=== PATIENT | female | born 1965 | race Caucasian/White ===

== ENCOUNTER 2018-05-27 08:27 | Inpatient (IN) | payer OTHER ==
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
[2018-05-27 09:33] VITALS: BMI 26.6
[2018-05-27] MEDS ORDERED: NICOTINE POLACRILEX 2 MG GUM BUC PRN (09:42)
[2018-05-27] MEDS ORDERED: METHOCARBAMOL 500 MG TABLET PO PRN (09:42)
[2018-05-27] MEDS ORDERED: ACETAMINOPHEN 325 MG TABLET (FP) PO PRN ×2 (09:42)
[2018-05-27] MEDS ORDERED: MAGNESIUM HYDROX 2400MG/30ML ORAL SUSPENSION 30 ML CUP PO PRN (09:42)
[2018-05-27] MEDS ORDERED: BISMUTH SUBSALICYLATE 262 MG/15 ML BTL PO PRN (09:42)
[2018-05-27] MEDS ORDERED: MELATONIN 5 MG TABLETS PO PRN (09:42)
[2018-05-27] MEDS ORDERED: cloNIDine HCL 0.1 MG TABLET PO PRN (09:42)
[2018-05-27] MEDS ORDERED: IBUPROFEN 400 MG TABLET (FP) PO PRN (09:42)
[2018-05-27] MEDS ORDERED: MAGNESIUM CITRATE 300 ML BOTTLE PO PRN (09:42)
[2018-05-27] MEDS ORDERED: MENTHOL/PHENOL 1 EACH UD MM PRN (09:42)
[2018-05-27] MEDS ORDERED: hydrOXYzine PAMOATE 25 MG CAPSULE (FP) PO PRN (09:42)
[2018-05-27] MEDS ORDERED: MAG HYDROX/AL HYDROX/SIMETH 30 ML UNIT-DOSE CUP PO PRN (09:42)
[2018-05-27] MEDS ORDERED: METHADONE HCL 10 MG TABLET (FOR DETOX USE ONLY) PO ONE ×2 (10:30→23:00)
[2018-05-27] MEDS: PRENATAL VITAMINS W/ FOLIC ACID TABLET (FP) PO SCH (11:09)
[2018-05-27] MEDS: GABAPENTIN 300 MG CAPSULE (FP) PO SCH ×2 (11:09→22:28)
[2018-05-27 14:34] LABS: EPI CELLS 3.4 /HPF (0-5/HPF); PH,URINE 5.5 (5.0-8.0); URINE APPEARANCE CLEAR; URINE BACTERIA 53.5 /hpf (NEGATIVE); URINE BILIRUBIN NEGATIVE (NEGATIVE); URINE CASTS 2 /lpf (0-8); URINE COLOR YELLOW; URINE GLUCOSE (UA) NEGATIVE (NEGATIVE); URINE KETONE NEGATIVE (NEGATIVE); URINE LEUK ESTERASE TRACE (NEGATIVE); URINE NITRITE NEGATIVE (NEGATIVE); URINE PROTEIN NEGATIVE (NEGATIVE); URINE RBC 4 /hpf (0-4); URINE UROBILINOGEN 0.2 mg/dL (0.2-1.0); URINE WBC 3 /hpf (0-5)
[2018-05-27 14:38] LABS: HEMOGLOBIN 11.4 GM/dL (10.7-15.3); MCH 28.8 pg (25.7-33.7); MCHC 33.5 g/dl (32.0-36.0); MEAN CELL VOLUME 85.7 fl (80-96); MEAN PLT VOLUME 9.1 fl (7.5-11.1); PLATELET COUNT 208 K/MM3 (134-434); RBC 3.96 M/mm3 (3.60-5.2); RDW 12.8 % (11.6-15.6); WHITE BLOOD COUNT 3.3 K/mm3 (4.0-10.0)
[2018-05-27] MEDS: diazePAM 5 MG TABLET PO SCH ×2 (14:54→22:29)
[2018-05-27 14:59] LABS: ALBUMIN 3.5 g/dl (3.4-5.0); ALK PHOS 81 U/L (45-117); ANION GAP 5 MMOL/L (8-16); BILIRUBIN,TOTAL 0.6 mg/dL (0.2-1); BLOOD UREA NITROGEN 13 mg/dL (7-18); CHLORIDE 103 mmol/L (98-107); CO2 30 mmol/L (21-32); CREATININE 0.6 mg/dL (0.55-1.3); GLUCOSE,RANDOM 108 mg/dL (74-106); POTASSIUM 4.2 mmol/L (3.5-5.1); SGOT/AST 24 U/L (15-37); SGPT/ALT 27 U/L (13-61); SODIUM 137 mmol/L (136-145); TOT PROT 6.6 g/dl (6.4-8.2)
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
[2018-05-27] MEDS: MIRTAZAPINE 15 MG TABLET (FP) PO SCH (22:39)
[2018-05-27] MEDS: THIAMINE HCL 100 MG TABLET (FP) PO SCH (22:40)
[2018-05-28] MEDS: diazePAM 5 MG TABLET PO SCH ×3 (05:25→22:14)
[2018-05-28] MEDS ORDERED: METHADONE HCL 10 MG TABLET (FOR DETOX USE ONLY) PO ONE (10:00)
[2018-05-28] MEDS: PRENATAL VITAMINS W/ FOLIC ACID TABLET (FP) PO SCH (10:02)
[2018-05-28] MEDS: GABAPENTIN 300 MG CAPSULE (FP) PO SCH ×2 (10:02→22:14)
--- NOTE | 2018-05-28 10:54 | EKG ---
Test Reason : Blood Pressure : / mmHG Vent. Rate : 052 BPM Atrial Rate : 052 BPM P-R Int : 156 ms QRS Dur : 086 ms QT Int : 426 ms P-R-T Axes : 022 -06 009 degrees QTc Int : 396 ms SINUS BRADYCARDIA OTHERWISE NORMAL ECG NO PREVIOUS ECGS AVAILABLE Confirmed by MD Nydia, Aleksey ([id number]) on 05/28/2018 10:54:05 AM Referred By: Confirmed By:Aleksey Stafford MD
[2018-05-28] MEDS ORDERED: PNEUMOCOCCAL 23 VACCINE 0.5 ML VIAL IM ONE (12:00)
[2018-05-28] MEDS ORDERED: PNEUMOC 13-VAL CONJ-DIP CRM/PF 0.5 ML DISP.SYRIN IM ONE (12:00)
--- NOTE | 2018-05-28 14:17 | PN ---
[facility] CIWA - CIWA Score Nausea/Vomitin-Mild Nausea/No Vomiting Muscle Tremors: 3 Anxiety: 2 Agitation: 2 Paroxysmal Sweats: 1-Minimal Palms Moist Orientation: 3-Disoriented Date>2 days Tacttile Disturbances: 0-None Auditory Disturbances: 0-None Visual Disturbances: 0-None Headache: 0-None Present CIWA-Ar Total Score: 12 [facility] COWS - Scale Resting Pulse: 0= [place] 80 or Below Sweatin= Chills/Flushing Restless Observation: 0= Sits Still Pupil Size: 0= Normal to Room Light Bone or Joint Aches: 1= Mild Discomfort Runny Nose/ Eye Tearin= Nasal Congestion GI Upset > 30mins: 2= Nausea/Diarrhea Tremor Observation of Outstretched Hands: 1= Tremor [place], Not Seen Yawning Observation: 2= >3x During Session Anxiety or Irritability: 1=Feels Anxious/Irritable Goose Flesh Skin: 3=Piloerection COWS Score: 12 [facility] Progress Note (SOAP) Subjective: feeling tired, resting on bed, trouble sleep through the night Objective: 05/28/18 14:17 Vital Signs Temperature 97.7 F 05/28/18 13:18 Pulse Rate 65 05/28/18 13:18 Respiratory Rate 18 05/28/18 13:18 Blood Pressure 127/69 05/28/18 13:18 O2 Sat by Pulse Oximetry (%) Laboratory Last Values WBC 3.3 K/mm3 (4.0-10.0) L 05/27/18 09:45 RBC 3.96 M/mm3 (3.60-5.2) 05/27/18 09:45 Hgb 11.4 GM/dL (10.7-15.3) 05/27/18 09:45 Hct 34.0 % (32.4-45.2) 05/27/18 09:45 MCV 85.7 fl (80-96) 05/27/18 09:45 MCH 28.8 pg (25.7-33.7) 05/27/18 09:45 MCHC 33.5 g/dl (32.0-36.0) 05/27/18 09:45 RDW 12.8 % (11.6-15.6) 05/27/18 09:45 Plt Count 208 K/MM3 (134-434) 05/27/18 09:45 MPV 9.1 fl (7.5-11.1) 05/27/18 09:45 Sodium 137 mmol/L (136-145) 05/27/18 09:45 Potassium 4.2 mmol/L (3.5-5.1) 05/27/18 09:45 Chloride 103 mmol/L (98-107) 05/27/18 09:45 Carbon Dioxide 30 mmol/L (21-32) 05/27/18 09:45 Anion Gap 5 MMOL/L (8-16) L 05/27/18 09:45 BUN 13 mg/dL (7-18) 05/27/18 09:45 Creatinine 0.6 mg/dL (0.55-1.3) 05/27/18 09:45 Creat Clearance w eGFR 103.79 (>60) 05/27/18 09:45 Random Glucose 108 mg/dL (74-106) H 05/27/18 09:45 Calcium 9.0 mg/dL (8.5-10.1) 05/27/18 09:45 Total Bilirubin 0.6 mg/dL (0.2-1) 05/27/18 09:45 AST 24 U/L (15-37) 05/27/18 09:45 ALT 27 U/L (13-61) 05/27/18 09:45 Alkaline Phosphatase 81 U/L (45-117) 05/27/18 09:45 Total Protein 6.6 g/dl (6.4-8.2) 05/27/18 09:45 Albumin 3.5 g/dl (3.4-5.0) 05/27/18 09:45 Urine Color Yellow 05/27/18 10:30 Urine Appearance Clear 05/27/18 10:30 Urine pH 5.5 (5.0-8.0) 05/27/18 10:30 Ur Specific [place] 1.012 (1.010-1.035) 05/27/18 10:30 Urine Protein Negative (NEGATIVE) 05/27/18 10:30 Urine Glucose (UA) Negative (NEGATIVE) 05/27/18 10:30 Urine Ketones Negative (NEGATIVE) 05/27/18 10:30 Urine Blood 1+ (NEGATIVE) H 05/27/18 10:30 Urine Nitrite Negative (NEGATIVE) 05/27/18 10:30 Urine Bilirubin Negative (NEGATIVE) 05/27/18 10:30 Urine Urobilinogen 0.2 mg/dL (0.2-1.0) 05/27/18 10:30 Ur Leukocyte Esterase Trace (NEGATIVE) 05/27/18 10:30 Urine WBC (Auto) 3 /hpf (0-5) 05/27/18 10:30 Urine RBC (Auto) 4 /hpf (0-4) 05/27/18 10:30 Urine Casts (Auto) 2 /lpf (0-8) 05/27/18 10:30 U Epithel Cells (Auto) 3.4 /HPF (0-5/HPF) 05/27/18 10:30 Urine Bacteria (Auto) 53.5 /hpf (NEGATIVE) 05/27/18 10:30 RPR Titer Nonreactive (NONREACTIVE) 05/27/18 09:45 lab noted Assessment: 05/28/18 14:17 withdrawal sx Plan: continue detox
[2018-05-28] MEDS: THIAMINE HCL 100 MG TABLET (FP) PO SCH (22:14)
[2018-05-28] MEDS: MIRTAZAPINE 15 MG TABLET (FP) PO SCH (22:14)
[2018-05-29] MEDS ORDERED: diazePAM 5 MG TABLET PO ONE (06:00)
--- NOTE | 2018-05-29 09:29 | PN ---
S CIWA - CIWA Score Nausea/Vomitin-No Nausea/No Vomiting Muscle Tremors: 2 Anxiety: 3 Agitation: 2 Paroxysmal Sweats: 1-Minimal Palms Moist Orientation: 1-Uncertain about Date Tacttile Disturbances: 0-None Auditory Disturbances: 0-None Visual Disturbances: 0-None Headache: 1-Very Mild CIWA-Ar Total Score: 10 [facility] COWS - Scale Resting Pulse: 0= [place] 80 or Below Sweatin= Chills/Flushing Restless Observation: 0= Sits Still Pupil Size: 0= Normal to Room Light Bone or Joint Aches: 1= Mild Discomfort Runny Nose/ Eye Tearin= Nasal Congestion GI Upset > 30mins: 1= Stomach Cramp Tremor Observation of Outstretched Hands: 2= Slight Tremor Visible Yawning Observation: 2= >3x During Session Anxiety or Irritability: 2=Irritable/Anxious Goose Flesh Skin: 0=Smooth Skin COWS Score: 10 [facility] Progress Note (SOAP) Subjective: feeling ok today limited social activities with peers in day room patient is taking klonazapin 0.5 mg po bid last filled 05/21/18 patient is taking oxy bid last filled 04/15/18 Objective: 05/29/18 10:07 Vital Signs Temperature 97.9 F 05/29/18 09:18 Pulse Rate 59 L 05/29/18 09:18 Respiratory Rate 18 05/29/18 09:18 Blood Pressure 140/73 05/29/18 09:18 O2 Sat by Pulse Oximetry (%) Laboratory Last Values WBC 3.3 K/mm3 (4.0-10.0) L 05/27/18 09:45 RBC 3.96 M/mm3 (3.60-5.2) 05/27/18 09:45 Hgb 11.4 GM/dL (10.7-15.3) 05/27/18 09:45 Hct 34.0 % (32.4-45.2) 05/27/18 09:45 MCV 85.7 fl (80-96) 05/27/18 09:45 MCH 28.8 pg (25.7-33.7) 05/27/18 09:45 MCHC 33.5 g/dl (32.0-36.0) 05/27/18 09:45 RDW 12.8 % (11.6-15.6) 05/27/18 09:45 Plt Count 208 K/MM3 (134-434) 05/27/18 09:45 MPV 9.1 fl (7.5-11.1) 05/27/18 09:45 Sodium 137 mmol/L (136-145) 05/27/18 09:45 Potassium 4.2 mmol/L (3.5-5.1) 05/27/18 09:45 Chloride 103 mmol/L (98-107) 05/27/18 09:45 Carbon Dioxide 30 mmol/L (21-32) 05/27/18 09:45 Anion Gap 5 MMOL/L (8-16) L 05/27/18 09:45 BUN 13 mg/dL (7-18) 05/27/18 09:45 Creatinine 0.6 mg/dL (0.55-1.3) 05/27/18 09:45 Creat Clearance w eGFR 103.79 (>60) 05/27/18 09:45 Random Glucose 108 mg/dL (74-106) H 05/27/18 09:45 Calcium 9.0 mg/dL (8.5-10.1) 05/27/18 09:45 Total Bilirubin 0.6 mg/dL (0.2-1) 05/27/18 09:45 AST 24 U/L (15-37) 05/27/18 09:45 ALT 27 U/L (13-61) 05/27/18 09:45 Alkaline Phosphatase 81 U/L (45-117) 05/27/18 09:45 Total Protein 6.6 g/dl (6.4-8.2) 05/27/18 09:45 Albumin 3.5 g/dl (3.4-5.0) 05/27/18 09:45 Urine Color Yellow 05/27/18 10:30 Urine Appearance Clear 05/27/18 10:30 Urine pH 5.5 (5.0-8.0) 05/27/18 10:30 Ur Specific [place] 1.012 (1.010-1.035) 05/27/18 10:30 Urine Protein Negative (NEGATIVE) 05/27/18 10:30 Urine Glucose (UA) Negative (NEGATIVE) 05/27/18 10:30 Urine Ketones Negative (NEGATIVE) 05/27/18 10:30 Urine Blood 1+ (NEGATIVE) H 05/27/18 10:30 Urine Nitrite Negative (NEGATIVE) 05/27/18 10:30 Urine Bilirubin Negative (NEGATIVE) 05/27/18 10:30 Urine Urobilinogen 0.2 mg/dL (0.2-1.0) 05/27/18 10:30 Ur Leukocyte Esterase Trace (NEGATIVE) 05/27/18 10:30 Urine WBC (Auto) 3 /hpf (0-5) 05/27/18 10:30 Urine RBC (Auto) 4 /hpf (0-4) 05/27/18 10:30 Urine Casts (Auto) 2 /lpf (0-8) 05/27/18 10:30 U Epithel Cells (Auto) 3.4 /HPF (0-5/HPF) 05/27/18 10:30 Urine Bacteria (Auto) 53.5 /hpf (NEGATIVE) 05/27/18 10:30 RPR Titer Nonreactive (NONREACTIVE) 05/27/18 09:45 lab noted Assessment: 05/29/18 10:08 alcohol and opiate withdrawal sx Plan: continue detox patient considers return to klonopin and oxy provider upon discharge
[2018-05-29] MEDS ORDERED: METHADONE HCL 10 MG TABLET (FOR DETOX USE ONLY) PO ONE (10:00)
[2018-05-29] MEDS: GABAPENTIN 300 MG CAPSULE (FP) PO SCH ×2 (10:12→22:40)
[2018-05-29] MEDS: PRENATAL VITAMINS W/ FOLIC ACID TABLET (FP) PO SCH (10:12)
[2018-05-29] MEDS: diazePAM 5 MG TABLET PO PRN ×2 (10:13→22:42)
[2018-05-29] MEDS: MIRTAZAPINE 15 MG TABLET (FP) PO SCH (22:40)
[2018-05-29] MEDS: THIAMINE HCL 100 MG TABLET (FP) PO SCH (22:40)
[2018-05-30] MEDS ORDERED: METHADONE HCL 10 MG TABLET (FOR DETOX USE ONLY) PO ONE (10:00)
[2018-05-30] MEDS: PRENATAL VITAMINS W/ FOLIC ACID TABLET (FP) PO SCH (10:38)
[2018-05-30] MEDS: GABAPENTIN 300 MG CAPSULE (FP) PO SCH (10:38)
[2018-05-30 10:57] LABS: HEMATOCRIT 37.3 % (32.4-45.2); HEMOGLOBIN 12.6 GM/dL (10.7-15.3); MCHC 33.7 g/dl (32.0-36.0); MEAN PLT VOLUME 9.3 fl (7.5-11.1); PLATELET COUNT 202 K/MM3 (134-434); RBC 4.34 M/mm3 (3.60-5.2); RDW 13.1 % (11.6-15.6); WHITE BLOOD COUNT 5.7 K/mm3 (4.0-10.0)
--- NOTE | 2018-05-30 12:14 | PN ---
S CIWA - CIWA Score Nausea/Vomitin-Mild Nausea/No Vomiting Muscle Tremors: 1-None Visible, but [place] Anxiety: 2 Agitation: 1-Slight > Activity Paroxysmal Sweats: No Perspiration Orientation: 0-Oriented Tacttile Disturbances: 0-None Auditory Disturbances: 0-None Visual Disturbances: 0-None Headache: 1-Very Mild CIWA-Ar Total Score: 6 [facility] COWS - Scale Resting Pulse: 1= [place] 81-100 Sweatin= Chills/Flushing Restless Observation: 0= Sits Still Pupil Size: 0= Normal to Room Light Bone or Joint Aches: 1= Mild Discomfort Runny Nose/ Eye Tearin= None GI Upset > 30mins: 1= Stomach Cramp Tremor Observation of Outstretched Hands: 1= Tremor [place], Not Seen Yawning Observation: 0= None Anxiety or Irritability: 1=Feels Anxious/Irritable Goose Flesh Skin: 0=Smooth Skin COWS Score: 6 S Progress Note (SOAP) Subjective: feeling better today social with peers in day room Objective: 05/30/18 12:11 Vital Signs Temperature 99.1 F 05/30/18 09:48 Pulse Rate 82 05/30/18 09:48 Respiratory Rate 18 05/30/18 09:48 Blood Pressure 146/84 05/30/18 09:48 O2 Sat by Pulse Oximetry (%) Laboratory Last Values WBC 5.7 K/mm3 (4.0-10.0) 05/30/18 07:00 RBC 4.34 M/mm3 (3.60-5.2) 05/30/18 07:00 Hgb 12.6 GM/dL (10.7-15.3) 05/30/18 07:00 Hct 37.3 % (32.4-45.2) 05/30/18 07:00 MCV 86.0 fl (80-96) 05/30/18 07:00 MCH 29.0 pg (25.7-33.7) 05/30/18 07:00 MCHC 33.7 g/dl (32.0-36.0) 05/30/18 07:00 RDW 13.1 % (11.6-15.6) 05/30/18 07:00 Plt Count 202 K/MM3 (134-434) 05/30/18 07:00 MPV 9.3 fl (7.5-11.1) 05/30/18 07:00 Sodium 137 mmol/L (136-145) 05/27/18 09:45 Potassium 4.2 mmol/L (3.5-5.1) 05/27/18 09:45 Chloride 103 mmol/L (98-107) 05/27/18 09:45 Carbon Dioxide 30 mmol/L (21-32) 05/27/18 09:45 Anion Gap 5 MMOL/L (8-16) L 05/27/18 09:45 BUN 13 mg/dL (7-18) 05/27/18 09:45 Creatinine 0.6 mg/dL (0.55-1.3) 05/27/18 09:45 Creat Clearance w eGFR 103.79 (>60) 05/27/18 09:45 Random Glucose 108 mg/dL (74-106) H 05/27/18 09:45 Calcium 9.0 mg/dL (8.5-10.1) 05/27/18 09:45 Total Bilirubin 0.6 mg/dL (0.2-1) 05/27/18 09:45 AST 24 U/L (15-37) 05/27/18 09:45 ALT 27 U/L (13-61) 05/27/18 09:45 Alkaline Phosphatase 81 U/L (45-117) 05/27/18 09:45 Total Protein 6.6 g/dl (6.4-8.2) 05/27/18 09:45 Albumin 3.5 g/dl (3.4-5.0) 05/27/18 09:45 Urine Color Yellow 05/27/18 10:30 Urine Appearance Clear 05/27/18 10:30 Urine pH 5.5 (5.0-8.0) 05/27/18 10:30 Ur Specific [place] 1.012 (1.010-1.035) 05/27/18 10:30 Urine Protein Negative (NEGATIVE) 05/27/18 10:30 Urine Glucose (UA) Negative (NEGATIVE) 05/27/18 10:30 Urine Ketones Negative (NEGATIVE) 05/27/18 10:30 Urine Blood 1+ (NEGATIVE) H 05/27/18 10:30 Urine Nitrite Negative (NEGATIVE) 05/27/18 10:30 Urine Bilirubin Negative (NEGATIVE) 05/27/18 10:30 Urine Urobilinogen 0.2 mg/dL (0.2-1.0) 05/27/18 10:30 Ur Leukocyte Esterase Trace (NEGATIVE) 05/27/18 10:30 Urine WBC (Auto) 3 /hpf (0-5) 05/27/18 10:30 Urine RBC (Auto) 4 /hpf (0-4) 05/27/18 10:30 Urine Casts (Auto) 2 /lpf (0-8) 05/27/18 10:30 U Epithel Cells (Auto) 3.4 /HPF (0-5/HPF) 05/27/18 10:30 Urine Bacteria (Auto) 53.5 /hpf (NEGATIVE) 05/27/18 10:30 RPR Titer Nonreactive (NONREACTIVE) 05/27/18 09:45 lab noted Assessment: 05/30/18 12:14 mild withdrawal sx Plan: continue detox
[2018-05-30 18:20] VITALS: BP 113/63; PULSE 83; TEMP 100
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
--- NOTE | 2018-05-30 18:29 | DS ---
[facility] Detox Discharge Summary Admission Date: 05/27/18 Discharge Date: 05/30/18 - History Present History: Alcohol Dependence Additional Comments: Patient left AMA and walked off the unit. - Physical Exam Results Vital Signs: Vital Signs Temperature 100.0 F H 05/30/18 17:00 Pulse Rate 83 05/30/18 17:00 Respiratory Rate 16 05/30/18 17:00 Blood Pressure 113/63 05/30/18 17:00 O2 Sat by Pulse Oximetry (%) - Medication Discharge Medications: Ambulatory Orders Oxycodone HCl/Acetaminophen [Percocet 5-325 mg Tablet] 1 tab PO Q4H #20 tablet MDD 12 12/19/15 Gabapentin [Neurontin -] 300 mg PO BID 05/27/18 Melatonin/Pyridoxine HCl (B6) [Melatonin 5 mg Tablet] 1 each PO HS 05/27/18 Meloxicam 15 mg PO DAILY 05/27/18 - AMA Did Patient Leave Against Medical Advice: Yes
[2018-05-31] MEDS ORDERED: METHADONE HCL 5 MG TABLET (FOR DETOX USE ONLY) PO ONE (06:00)
== END 2018-05-30 17:39 | disposition left against medical advice (07) | DRG 770 ==
LOC: YASAS 08:27 → Y3N 10:00
PROVIDERS: ADMIT Surgery; ATTEND Surgery
PROC: HZ2ZZZZ Detoxification Services for Substance Abuse Treatment (ICD-10-PCS; principal; 2018-05-27)
DX: F10.230 Alcohol dependence with withdrawal, uncomplicated (principal); F11.23 Opioid dependence with withdrawal; F17.210 Nicotine dependence, cigarettes, uncomplicated; F19.24 Other psychoactive substance dependence with psychoactive substance-induced mood disorder; F31.9 Bipolar disorder, unspecified; F43.10 Post-traumatic stress disorder, unspecified; G47.00 Insomnia, unspecified; M54.5 Low back pain; E86.0 Dehydration; R63.4 Abnormal weight loss; Z68.26 Body mass index [BMI] 26.0-26.9, adult; R01.1 Cardiac murmur, unspecified
CPT/HCPCS: 36415; 80053; 81003; 85027; 86593; 90732; 93005; 93010; G0009

== ENCOUNTER 2018-11-11 09:41 | Inpatient (IN) | payer OTHER ==
[2018-11-11 10:01] VITALS: BMI 21.8
--- NOTE | 2018-11-11 10:31 | HP ---
COWS - Scale Resting Pulse: 0= [place] 80 or Below Sweatin=Flushed/Facial Moisture Restless Observation: 3= Extraneous Movement Pupil Size: 1= Pupils >than Normal Bone or Joint Aches: 2= Severe Diffuse Aches Runny Nose/ Eye Tearin= Runny Nose/Eyes GI Upset > 30mins: 1= Stomach Cramp Tremor Observation: 2= Slight Tremor Visible Yawning Observation: 1= 1-2x During Session Anxiety or Irritability: 2=Irritable/Anxious Goose Flesh Skin: 3=Piloerection COWS Score: 19 CIWA Score Nausea/Vomitin-Mild Nausea/No Vomiting Muscle Tremors: 3 Anxiety: 4-Mod. Anxious/Guarded Agitation: 3 Paroxysmal Sweats: 3 Orientation: 0-Oriented Tacttile Disturbances: 1-Very Mild Itch/Numbness Auditory Disturbances: 0-None Visual Disturbances: 0-None Headache: 3-Moderate CIWA-Ar Total Score: 18 - Admission Criteria OASAS Guidelines: Admission for Medically Managed Detox: Requires at least one of the followin. CIWA greater than 12 2. Seizures within the past 24 hours 3. Delirium tremens within the past 24 hours 4. Hallucinations within the past 24 hours 5. Acute intervention needed for co occurring medical disorder 6. Acute intervention needed for co occurring psychiatric disorder 7. Severe withdrawal that cannot be handled at a lower level of care (continued vomiting, continued diarrhea, abnormal vital signs) requiring intravenous medication and/or fluids 8. Admitting History and Physical - Primary Care Physician PCP: Fabien Tobin ([facility]) - Admission Chief Complaint: " I want to detox from heroin and alcohol." History of Present Illness: Patient is 53 year old female with alcohol dependence with withdrawals and heroin dependence with withdrawals. She is using 1 pint of vodka daily, last drank last night 5 PM. She is using heroin 6-7 bags of heroin daily, last used yesterday. She is also using cocaine sporadically, last used 2 days ago. She is prescribed xanax by her psychiatrist, Dr. Lyle in [place]. History Source: Patient Limitations to Obtaining History: No Limitations - Past Medical History Cardiovascular: Yes: Murmur, Other (had rheumatic fever with cardiac involvement as a child.) ...LMP Comment: post menopausal 13 years ago ...: No ...: 1 ...Para: 1 Heme/Onc: Yes: Anemia Psych: Yes: Bipolar Rheumatology: Yes: Rheumatoid Arthritis - Past Surgical History Additional Past Surgical History: cyst on right thigh as a child. 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 She is using 7 bags of heroin daily, last used this morning. She is using cocaine sporadically, last used 2-3 days ago. She is using alcohol 1 pint of vodka daily, last used yesterday evening. She smokeds 1/2 ppd daily, last smoked today. PMH: Heart murmur and rheumatic fever as a child. Psurg: Left thigh cyst removal, Left elbow in 1985 Exam Limitations: No Limitations - Ebola screening Have you traveled outside of the country in the last 21 days: No Have you had contact with anyone from an Ebola affected area: No Have you been sick,other than usual withdrawal symptoms: No Do you have a fever: No - Review of Systems Constitutional: No Symptoms Reported EENT: reports: No Symptoms Reported Respiratory: reports: No Symptoms reported Cardiac: reports: No Symptoms Reported GI: reports: Nausea, Abdominal cramping : reports: No Symptoms Reported Musculoskeletal: reports: Muscle Pain, Muscle Weakness Integumentary: reports: No Symptoms Reported Neuro: reports: Headache Endocrine: reports: No Symptoms Reported Hematology: reports: No Symptoms Reported Psychiatric: reports: Agitated, Anxious Other Systems: Reviewed and Negative Patient History - Patient Medical History Hx Anemia: No Hx Asthma: No Hx Chronic Obstructive Pulmonary Disease (COPD): No Hx Cancer: No Hx Cardiac Disorders: Yes (HEART MURMUR) Hx Congestive Heart Failure: No Hx Hypertension: No Hx Hypercholesterolemia: No Hx Pacemaker: No HX Cerebrovascular Accident: No Hx Seizures: No Hx Dementia: No Hx Diabetes: No Hx Gastrointestinal Disorders: No Hx Liver Disease: No Hx Genitourinary Disorders: No Hx Sexually Transmitted Disorders: No Hx Renal Disease (ESRD): No Hx Thyroid Disease: No Hx Human Immunodeficiency Virus (HIV): No (last negative 2016) Hx Hepatitis C: No Hx Depression: Yes Hx Suicide Attempt: No Hx Bipolar Disorder: Yes (on med) Hx Schizophrenia: No - Patient Surgical History Past Surgical History: Yes Hx Neurologic Surgery: Yes (neuropathy L arm) Hx Cataract Extraction: No Hx Cardiac Surgery: No Hx Lung Surgery: No Hx Breast Surgery: No Hx Breast Biopsy: No Hx Abdominal Surgery: No Hx Appendectomy: No Hx Cholecystectomy: No Hx Genitourinary Surgery: No Hx Section: No Hx Orthopedic Surgery: Yes (left elbow surgery in [facility]) Anesthesia Reaction: No - PPD History Previous Implant?: Yes Documented Results: Negative w/proof Implanted On Prior [facility] Admission?: Yes Date: 05/29/18 PPD to be Administered?: No - Reproductive History Patient is a Female of Child Bearing Age (11 -55 yrs old): Yes LMP comment: stopped menstruation 13 years ago Patient : No - Smoking Cessation Smoking history: Current every day smoker Have you smoked in the past 12 months: Yes Aproximately how many cigarettes per day: 20 Hx Chewing Tobacco Use: No Initiated information on smoking cessation: Yes 'Breaking Loose' booklet given: 11/11/18 - Substance & Tx. History Hx Alcohol Use: Yes (1 pint daily of vodka) Hx Substance Use: Yes Substance Use Type: Alcohol, Cocaine, Heroin Hx Substance Use Treatment: Yes (multiple detoxes) - Substances abused Heroin Substance route: Inhalation Frequency: Daily Amount used: 7-8 bags Age of first use: 23 Date of last use: 11/11/18 Alcohol Substance route: Oral Frequency: Daily Amount used: 1 .5 glass wine, 1 pt. vodka Age of first use: 17 Date of last use: 11/10/18 Admission Physical Exam BHS - Vital Signs Vital Signs: Vital Signs - 24 hr 11/11/18 09:44 Temperature 97.7 F Pulse Rate 64 Respiratory 18 Rate Blood Pressure 122/69 - Physical General Appearance: Yes: Disheveled, Moderate Distress HEENTM: Yes: EOMI, Hearing grossly Normal, Normocephalic, Normal Voice, JULIO CESAR, Tm 's normal Respiratory: Yes: Chest Non-Tender, Lungs Clear, Normal Breath Sounds, No Respiratory Distress, No Accessory Muscle Use Neck: Yes: No masses,lesions,Nodules, Supple, Trachea in good position Breast: Yes: Within Normal Limits, Axillae without masses, Breasts Symetrical Cardiology: Yes: Regular Rhythm, Regular Rate, S1, S2, Murmur, Systolic Murmur ( mid-systolic murmur.) Abdominal: Yes: Normal Bowel Sounds, Non Tender, Flat, Soft Genitourinary: Yes: Within Normal Limits Back: Yes: Normal Inspection Musculoskeletal: Yes: full range of Motion, Gait Steady Extremities: Yes: Normal Capillary Refill, Normal Inspection, Normal Range of Motion, Non-Tender Neurological: Yes: cutter and presser II-XII NML intact, Fully Oriented, Alert, Motor Strength 5/5, Normal Mood/Affect Integumentary: Yes: Normal Color, Warm Lymphatic: Yes: Within Normal Limits - Diagnostic (1) Alcohol dependence with uncomplicated withdrawal Current Visit: Yes Status: Acute (2) Bipolar disorder Current Visit: Yes Status: Acute (3) Opioid dependence with withdrawal Current Visit: Yes Status: Acute (4) Nicotine dependence Current Visit: Yes Status: Chronic (5) Substance induced mood disorder Current Visit: Yes Status: Chronic Cleared for Admission [facility] - Detox or Rehab [facility] Level of Care: Medically Managed Detox Regimen/Protocol: Methadone/Librium Screened but not Admitted - Documentation of Visit Screened but not Admitted: No Left Prior to Completion of Assessment: No Insurance Authorization Denied: No Patient Does Not Meet Criteria for Admission: No Alternative Treatment/Jail Info Provided: No Breathalyzer - Breathalyzer Breathalyzer: 0 Vital Signs - Vital Signs Vital signs refused: No Temperature: 97.7 F Temperature source: Oral Pulse Rate: 64 Respiratory Rate: 18 Blood Pressure: 122/69 BP Location: Left Arm Blood Pressure position: Sitting - Height Height: 5 ft 5 in - Weight Weight: 131 lb Weight measurement method: Standing scale - BMI Body Mass Index (BMI): 21.8 - Bowel Function Bowel Movement: Yes POC Urine test - Test device test lot number: [id number] Expiration date: 10/13/19 - Control test control: Yes - Result Urine Test Results: Negative - NO line present Urine Drug Screen - Test Device Lot number: [id number] Expiration date: 01/12/20 - Control Is test valid?: Yes - Results Drug screen NEGATIVE: No Urine drug screen results: MOP-Opiates Inpatient Rehab Admission - Rehab Decision to Admit Inpatient rehab admission?: No
[2018-11-11] MEDS ORDERED: hydrOXYzine PAMOATE 25 MG CAPSULE (FP) PO PRN (10:55)
[2018-11-11] MEDS ORDERED: MAGNESIUM CITRATE 300 ML BOTTLE PO PRN (10:55)
[2018-11-11] MEDS ORDERED: MAGNESIUM HYDROX 2400MG/30ML ORAL SUSPENSION 30 ML CUP PO PRN (10:55)
[2018-11-11] MEDS ORDERED: cloNIDine HCL 0.1 MG TABLET PO PRN (10:55)
[2018-11-11] MEDS ORDERED: MELATONIN 5 MG TABLETS PO PRN (10:55)
[2018-11-11] MEDS ORDERED: METHADONE HCL 10 MG TABLET (FOR DETOX USE ONLY) PO ONE (10:55)
[2018-11-11] MEDS ORDERED: MAG HYDROX/AL HYDROX/SIMETH 30 ML UNIT-DOSE CUP PO PRN (10:55)
[2018-11-11] MEDS ORDERED: MENTHOL/PHENOL 1 EACH UD MM PRN (10:55)
[2018-11-11] MEDS ORDERED: BISMUTH SUBSALICYLATE 524 MG/30 ML UD PO PRN (10:55)
[2018-11-11] MEDS ORDERED: chlordiazePOXIDE HCL 25 MG CAPSULE PO PRN (10:55)
[2018-11-11] MEDS ORDERED: IBUPROFEN 400 MG TABLET (FP) PO PRN (10:55)
[2018-11-11] MEDS ORDERED: ACETAMINOPHEN 325 MG TABLET (FP) PO PRN ×2 (10:55)
[2018-11-11] MEDS ORDERED: METHOCARBAMOL 500 MG TABLET PO PRN (10:55)
[2018-11-11] MEDS ORDERED: IBUPROFEN 200 MG TABLET PO PRN ×2 (12:14→15:39)
[2018-11-11] MEDS: chlordiazePOXIDE HCL 25 MG CAPSULE PO SCH ×3 (12:46→22:34)
[2018-11-11 14:07] LABS: HEMATOCRIT 34.9 % (32.4-45.2); HEMOGLOBIN 11.5 GM/dL (10.7-15.3); MCH 28.1 pg (25.7-33.7); MCHC 32.9 g/dl (32.0-36.0); MEAN CELL VOLUME 85.3 fl (80-96); MEAN PLT VOLUME 9.3 fl (7.5-11.1); PLATELET COUNT 205 K/MM3 (134-434); RBC 4.09 M/mm3 (3.60-5.2); WHITE BLOOD COUNT 5.1 K/mm3 (4.0-10.0)
[2018-11-11 14:20] LABS: ALBUMIN 3.6 g/dl (3.4-5.0); BILIRUBIN,TOTAL 0.6 mg/dL (0.2-1); BLOOD UREA NITROGEN 15.8 mg/dL (7-18); CALCIUM 8.9 mg/dL (8.5-10.1); CREATININE 0.8 mg/dL (0.55-1.3); POTASSIUM 3.9 mmol/L (3.5-5.1); TOT PROT 6.8 g/dl (6.4-8.2)
[2018-11-11] MEDS ORDERED: THIAMINE HCL 100 MG TABLET (FP) PO SCH (22:00)
[2018-11-11] MEDS: GABAPENTIN 300 MG CAPSULE (FP) PO SCH (22:35)
[2018-11-12] MEDS: chlordiazePOXIDE HCL 25 MG CAPSULE PO SCH ×2 (06:29→10:29)
[2018-11-12] MEDS ORDERED: METHADONE HCL 10 MG TABLET (FOR DETOX USE ONLY) ONE (08:39)
[2018-11-12] MEDS ORDERED: METHADONE HCL 5 MG TABLET (FOR DETOX USE ONLY) ONE (08:39)
[2018-11-12 09:34] VITALS: BP 125/72; PULSE 69; TEMP 98.8
[2018-11-12] MEDS ORDERED: METHADONE (DETOX) 20 MG, METHADONE (DETOX) 5 MG PO ONE (10:00)
[2018-11-12] MEDS ORDERED: PRENATAL VITAMINS W/ FOLIC ACID TABLET (FP) PO SCH (10:00)
[2018-11-12] MEDS ORDERED: NICOTINE 14 MG/24 HOURS TOPICAL PATCH TD SCH (10:00)
[2018-11-12] MEDS ORDERED: PATIENT'S OWN MEDICATION (NON-FORMULARY) (Meloxicam [Meloxicam] 15 MG) PO SCH (10:00)
[2018-11-12] MEDS: GABAPENTIN 300 MG CAPSULE (FP) PO SCH (10:29)
--- NOTE | 2018-11-12 17:13 | DS ---
[facility] Detox Discharge Summary Admission Date: 11/11/18 Discharge Date: 11/12/18 - History Present History: Alcohol Dependence, Opioid Dependence Additional Comments: DESPITE EFFORTS BY TELECASTING ENGINEER AND BY NURSING STAFF TO ADDRESS PATIENT'S MEDICAL NEEDS / CONCERNS, PATIENT DOES NOT WISH TO REMAIN TO COMPLETE DETOX REGIMEN. RISKS OF LEAVING DETOX UNIT AGAINST MEDICAL ADVICE AND PRIOR TO COMPLETION OF DETOX REGIMEN EXPLAINED TO PATIENT. PATIENT ADVISED TO GO IMMEDIATELY TO NEAREST ER SHOULD ANY INTOLERABLE WITHDRAWAL / DETOX SYMPTOMS DEVELOP AT ANY TIME. PATIENT VERBALIZED UNDERSTANDING OF ALL INFORMATION / RECOMMENDATIONS PRESENTED TO HER PRIOR TO DEPARTURE FROM DETOX UNIT. PATIENT LEFT DETOX UNIT IN STABLE MEDICAL CONDITION. Pertinent Past History: Bipolar Disorder, Nicotine Dependence, History Of Cardiac Murmur, History Of rheumatic Fever (During Childhood), History Of Anemia, History Of Rheumatoid Arthritis. - Physical Exam Results Vital Signs: Vital Signs Temperature 98.8 F 11/12/18 09:33 Pulse Rate 69 11/12/18 09:33 Respiratory Rate 18 11/12/18 09:33 Blood Pressure 125/72 11/12/18 09:33 O2 Sat by Pulse Oximetry (%) Pertinent Admission Physical Exam Findings: WITHDRAWAL SYMPTOMS. Laboratory Tests 11/11/18 11/11/18 11/11/18 10:43 11:30 11:30 WBC 5.1 RBC 4.09 Hgb 11.5 Hct 34.9 MCV 85.3 MCH 28.1 MCHC 32.9 RDW 14.0 Plt Count 205 MPV 9.3 Sodium 140 Potassium 3.9 Chloride 104 Carbon Dioxide 30 Anion Gap 6 L BUN 15.8 Creatinine 0.8 Est GFR (CKD-EPI)AfAm 96.19 Est GFR (CKD-EPI)NonAf 83.00 Random Glucose 108 H Calcium 8.9 Total Bilirubin 0.6 AST 9 L ALT 17 Alkaline Phosphatase 79 Total Protein 6.8 Albumin 3.6 POC Urine HCG, Qual Negative RPR Titer 11/11/18 11:30 WBC RBC Hgb Hct MCV MCH MCHC RDW Plt Count MPV Sodium Potassium Chloride Carbon Dioxide Anion Gap BUN Creatinine Est GFR (CKD-EPI)AfAm Est GFR (CKD-EPI)NonAf Random Glucose Calcium Total Bilirubin AST ALT Alkaline Phosphatase Total Protein Albumin POC Urine HCG, Qual RPR Titer Nonreactive LABS NOTED. - Medication Discharge Medications: Ambulatory Orders Gabapentin [Neurontin -] 300 mg PO BID 05/27/18 Melatonin/Pyridoxine HCl (B6) [Melatonin 5 mg Tablet] 1 each PO HS 05/27/18 - Diagnosis (1) Substance induced mood disorder Status: Chronic (2) Opioid dependence with withdrawal Status: Acute (3) Nicotine dependence Status: Chronic Qualifiers: Nicotine product type: cigarettes Substance use status: uncomplicated Qualified Code(s): F17.210 - Nicotine dependence, cigarettes, uncomplicated (4) Bipolar disorder Status: Acute Qualifiers: Active/Remission status: remission status unspecified Qualified Code(s): F31.9 - Bipolar disorder, unspecified (5) Alcohol dependence with uncomplicated withdrawal Status: Acute - AMA Did Patient Leave Against Medical Advice: Yes (PATIENT SIS NOT WISH TOV REMAIN TO COMPLETE DETOX REGIMEN.) [facility] CIWA - CIWA Score Nausea/Vomitin-No Nausea/No Vomiting Muscle Tremors: 2 Anxiety: 4-Mod. Anxious/Guarded Agitation: 3 Paroxysmal Sweats: No Perspiration Orientation: 0-Oriented Tacttile Disturbances: 2-Mild Itch/Numbness/Burn Auditory Disturbances: 2-Mild Harshness/Frighten Visual Disturbances: 0-None Headache: 0-None Present CIWA-Ar Total Score: 13 S COWS - Scale Resting Pulse: 0= [place] 80 or Below Sweatin= No chills or Flushing Restless Observation: 1= Difficult to Sit Still Pupil Size: 0= Normal to Room Light Bone or Joint Aches: 2= Severe Diffuse Aches Runny Nose/ Eye Tearin= Nasal Congestion GI Upset > 30mins: 0= None Tremor Observation of Outstretched Hands: 0= None Yawning Observation: 1= 1-2x During Session Anxiety or Irritability: 2=Irritable/Anxious Goose Flesh Skin: 3=Piloerection COWS Score: 10
[2018-11-13] MEDS ORDERED: chlordiazePOXIDE HCL 25 MG CAPSULE PO SCH (05:00)
[2018-11-13] MEDS ORDERED: METHADONE HCL 10 MG TABLET (FOR DETOX USE ONLY) PO ONE (10:00)
[2018-11-14] MEDS ORDERED: chlordiazePOXIDE HCL 10 MG CAPSULE PO PRN
[2018-11-14] MEDS ORDERED: chlordiazePOXIDE HCL 10 MG CAPSULE PO SCH (05:00)
[2018-11-14] MEDS ORDERED: METHADONE (DETOX) 10 MG, METHADONE (DETOX) 5 MG PO ONE (10:00)
[2018-11-15] MEDS ORDERED: chlordiazePOXIDE HCL 10 MG CAPSULE PO SCH (05:00)
[2018-11-15] MEDS ORDERED: METHADONE HCL 10 MG TABLET (FOR DETOX USE ONLY) PO ONE (10:00)
[2018-11-16] MEDS ORDERED: chlordiazePOXIDE HCL 10 MG CAPSULE PO ONE (05:00)
[2018-11-16] MEDS ORDERED: METHADONE HCL 5 MG TABLET (FOR DETOX USE ONLY) PO ONE (06:00)
== END 2018-11-12 14:08 | disposition left against medical advice (07) | DRG 770 ==
LOC: YASAS 09:41 → Y3N 11:10
PROVIDERS: ADMIT Surgery; ATTEND Surgery
PROC: HZ2ZZZZ Detoxification Services for Substance Abuse Treatment (ICD-10-PCS; principal; 2018-11-11)
DX: F11.23 Opioid dependence with withdrawal (principal); F10.230 Alcohol dependence with withdrawal, uncomplicated; F17.210 Nicotine dependence, cigarettes, uncomplicated; F19.24 Other psychoactive substance dependence with psychoactive substance-induced mood disorder; F31.9 Bipolar disorder, unspecified; R01.1 Cardiac murmur, unspecified; Z86.19 Personal history of other infectious and parasitic diseases
CPT/HCPCS: 36415; 80053; 81025; 85027; 86593

== ENCOUNTER 2020-11-15 11:47 | Inpatient (IN) | payer OTHER ==
[2020-11-15 13:20] VITALS: BMI 27.6
[2020-11-15] MEDS ORDERED: guaiFENesin 200 MG/10 ML 10 ML UNIT-DOSE CUPS PO PRN (13:42)
[2020-11-15] MEDS ORDERED: MAGNESIUM HYDROX 2400MG/30ML ORAL SUSPENSION 30 ML CUP PO PRN (13:42)
[2020-11-15] MEDS ORDERED: MAGNESIUM CITRATE 300 ML BOTTLE PO PRN (13:42)
[2020-11-15] MEDS ORDERED: IBUPROFEN 400 MG TABLET (FP) PO PRN (13:42)
[2020-11-15] MEDS ORDERED: LOPERAMIDE HCL 2 MG CAPSULE PO PRN (13:42)
[2020-11-15] MEDS ORDERED: ACETAMINOPHEN 325 MG TABLET (FP) PO PRN (13:42)
[2020-11-15] MEDS ORDERED: MAG HYDROX/AL HYDROX/SIMETH 30 ML UNIT-DOSE CUP PO PRN (13:42)
[2020-11-15] MEDS ORDERED: P-EPHED 60MG/TRIPROLIDI 2.5MG TABLET PO PRN (13:42)
[2020-11-15 17:12] LABS: HEMATOCRIT 34.9 % (32.4-45.2); HEMOGLOBIN 11.7 GM/dL (10.7-15.3); MCH 28.3 pg (25.7-33.7); MCHC 33.4 g/dl (32.0-36.0); MEAN CELL VOLUME 84.6 fl (80-96); MEAN PLT VOLUME 8.5 fl (7.5-11.1); PLATELET COUNT 215 10^3/uL (134-434); RBC 4.12 M/mm3 (3.60-5.2); RDW 13.9 % (11.6-15.6)
[2020-11-15 17:19] LABS: CALCIUM 8.8 mg/dL (8.5-10.1)
[2020-11-15 17:20] LABS: ALBUMIN 3.5 g/dl (3.4-5.0); BLOOD UREA NITROGEN 11.4 mg/dL (7-18)
[2020-11-15 17:23] LABS: CREATININE 0.8 mg/dL (0.55-1.3)
[2020-11-15 17:25] LABS: BILIRUBIN,TOTAL 0.5 mg/dL (0.2-1)
[2020-11-15 17:40] LABS: SYPHILIS W/ RPR CONF NON-REACTIVE (NONREACTIVE)
[2020-11-15] MEDS ORDERED: TUBERCULIN PPD 5 TU/0.1ML VIAL ID ONE (17:42)
[2020-11-15] MEDS: PRENATAL VITAMINS W/ FOLIC ACID TABLET (FP) PO SCH (18:01)
[2020-11-15] MEDS: hydrOXYzine PAMOATE 25 MG CAPSULE (FP) PO SCH ×2 (18:01→21:44)
[2020-11-15] MEDS: THIAMINE HCL 100 MG TABLET (FP) PO SCH (21:44)
[2020-11-15] MEDS: MELATONIN 5 MG TABLETS PO SCH (21:44)
[2020-11-15] MEDS: GABAPENTIN 300 MG CAPSULE PO SCH (21:44)
[2020-11-16] MEDS: hydrOXYzine PAMOATE 25 MG CAPSULE (FP) PO SCH ×6 (06:58→21:14)
[2020-11-16] MEDS ORDERED: methaDONE HCL 10 MG TABLET PO ONE (09:33)
[2020-11-16] MEDS ORDERED: methaDONE 40 MG, methaDONE 30 MG PO ONE (09:45)
[2020-11-16] MEDS ORDERED: methaDONE HCL 10 MG TABLET ONE (09:58)
[2020-11-16] MEDS ORDERED: methaDONE HCL 40 MG DISPERSABLE TABLET ONE (09:59)
[2020-11-16] MEDS: PRENATAL VITAMINS W/ FOLIC ACID TABLET (FP) PO SCH (10:42)
[2020-11-16] MEDS: GABAPENTIN 300 MG CAPSULE PO SCH ×2 (10:42→21:14)
[2020-11-16] MEDS: NICOTINE 10 MG CARTRIDGE (INHALER) IH PRN (19:30)
[2020-11-16] MEDS: MELATONIN 5 MG TABLETS PO SCH (21:13)
[2020-11-16] MEDS: THIAMINE HCL 100 MG TABLET (FP) PO SCH (21:13)
[2020-11-16] MEDS: MIRTAZAPINE 30 MG TABLET PO SCH (21:14)
[2020-11-17] MEDS ORDERED: methaDONE HCL 10 MG TABLET PO SCH (06:00)
[2020-11-17] MEDS: hydrOXYzine PAMOATE 25 MG CAPSULE (FP) PO SCH ×6 (06:20→22:54)
[2020-11-17] MEDS ORDERED: methaDONE HCL 40 MG DISPERSABLE TABLET ONE (06:21)
[2020-11-17] MEDS ORDERED: methaDONE HCL 10 MG TABLET ONE (06:21)
[2020-11-17] MEDS: methaDONE 40 MG, methaDONE 30 MG PO SCH (06:22)
[2020-11-17] MEDS: PRENATAL VITAMINS W/ FOLIC ACID TABLET (FP) PO SCH (10:29)
[2020-11-17] MEDS: GABAPENTIN 300 MG CAPSULE PO SCH ×2 (10:29→21:44)
[2020-11-17] MEDS: MELATONIN 5 MG TABLETS PO SCH (21:44)
[2020-11-17] MEDS: MIRTAZAPINE 30 MG TABLET PO SCH (21:45)
[2020-11-17] MEDS: THIAMINE HCL 100 MG TABLET (FP) PO SCH (21:46)
[2020-11-18] MEDS ORDERED: methaDONE HCL 40 MG DISPERSABLE TABLET ONE (03:08)
[2020-11-18] MEDS ORDERED: methaDONE HCL 10 MG TABLET ONE (03:08)
[2020-11-18] MEDS ORDERED: TUBERCULIN PPD 5 TU/0.1ML VIAL ID ONE (03:19)
[2020-11-18] MEDS: methaDONE 40 MG, methaDONE 30 MG PO SCH (06:24)
[2020-11-18] MEDS: hydrOXYzine PAMOATE 25 MG CAPSULE (FP) PO SCH ×2 (06:25→10:21)
[2020-11-18] MEDS: GABAPENTIN 300 MG CAPSULE PO SCH ×2 (10:21→21:28)
[2020-11-18] MEDS: PRENATAL VITAMINS W/ FOLIC ACID TABLET (FP) PO SCH (10:21)
[2020-11-18] MEDS ORDERED: hydrOXYzine PAMOATE 25 MG CAPSULE (FP) PO PRN (12:22)
[2020-11-18] MEDS: MIRTAZAPINE 30 MG TABLET PO SCH (21:28)
[2020-11-18] MEDS: MELATONIN 5 MG TABLETS PO SCH (21:28)
[2020-11-18] MEDS: THIAMINE HCL 100 MG TABLET (FP) PO SCH (21:28)
[2020-11-18] MEDS: NICOTINE 10 MG CARTRIDGE (INHALER) IH PRN (21:29)
[2020-11-19] MEDS ORDERED: methaDONE HCL 10 MG TABLET ONE (05:30)
[2020-11-19] MEDS ORDERED: methaDONE HCL 40 MG DISPERSABLE TABLET ONE (05:30)
[2020-11-19] MEDS: methaDONE 40 MG, methaDONE 30 MG PO SCH (06:28)
[2020-11-19 07:27] VITALS: BP 145/74; PULSE 64; TEMP 96.6
[2020-11-19] MEDS: PRENATAL VITAMINS W/ FOLIC ACID TABLET (FP) PO SCH (10:25)
[2020-11-19] MEDS: GABAPENTIN 300 MG CAPSULE PO SCH (10:25)
== END 2020-11-19 14:00 | disposition home or self-care (01) | DRG 772 ==
LOC: YASAS 11:47 → Y5N 16:29
PROVIDERS: ADMIT Allergy & Immunology; ATTEND Allergy & Immunology
PROC: HZ42ZZZ Group Counseling for Substance Abuse Treatment, Cognitive-Behavioral (ICD-10-PCS; principal; 2020-11-15)
DX: F11.20 Opioid dependence, uncomplicated (principal); F10.20 Alcohol dependence, uncomplicated; F12.20 Cannabis dependence, uncomplicated; F17.210 Nicotine dependence, cigarettes, uncomplicated; F19.280 Other psychoactive substance dependence with psychoactive substance-induced anxiety disorder; F19.282 Other psychoactive substance dependence with psychoactive substance-induced sleep disorder; F31.9 Bipolar disorder, unspecified; F43.10 Post-traumatic stress disorder, unspecified; G62.9 Polyneuropathy, unspecified; G56.00 Carpal tunnel syndrome, unspecified upper limb; M54.50 Low back pain, unspecified; M06.9 Rheumatoid arthritis, unspecified; R01.1 Cardiac murmur, unspecified; Z62.810 Personal history of physical and sexual abuse in childhood; Z91.410 Personal history of adult physical and sexual abuse; Z86.79 Personal history of other diseases of the circulatory system; Z56.0 Unemployment, unspecified
CPT/HCPCS: 36415; 80053; 81025; 85027; 86780; 86803; 90853; C9803; U0003; U0005

== ENCOUNTER 2021-03-03 17:17 | Inpatient (IN) | payer OTHER ==
[2021-03-03] MEDS ORDERED: P-EPHED 60MG/TRIPROLIDI 2.5MG TABLET PO PRN (17:58)
[2021-03-03] MEDS ORDERED: MAGNESIUM HYDROX 2400MG/30ML ORAL SUSPENSION 30 ML CUP PO PRN (17:58)
[2021-03-03] MEDS ORDERED: MAGNESIUM CITRATE 300 ML BOTTLE PO PRN (17:58)
[2021-03-03] MEDS ORDERED: LOPERAMIDE HCL 2 MG CAPSULE PO PRN (17:58)
[2021-03-03] MEDS ORDERED: guaiFENesin 200 MG/10 ML 10 ML UNIT-DOSE CUPS PO PRN (17:58)
[2021-03-03 19:17] VITALS: BMI 26.8
[2021-03-03] MEDS: GABAPENTIN 300 MG CAPSULE PO SCH (21:34)
[2021-03-03] MEDS: THIAMINE HCL 100 MG TABLET (FP) PO SCH (21:34)
[2021-03-03] MEDS: hydrOXYzine PAMOATE 25 MG CAPSULE (FP) PO SCH ×2 (21:34→21:43)
[2021-03-03] MEDS ORDERED: TUBERCULIN PPD 5 TU/0.1ML VIAL ID ONE (21:36)
[2021-03-03] MEDS: NICOTINE 10 MG CARTRIDGE (INHALER) IH PRN (21:39)
[2021-03-03] MEDS ORDERED: MELATONIN 5 MG TABLETS PO SCH (22:00)
[2021-03-04] MEDS: hydrOXYzine PAMOATE 25 MG CAPSULE (FP) PO SCH ×5 (05:57→21:26)
[2021-03-04] MEDS ORDERED: methaDONE HCL 10 MG TABLET PO SCH (07:30)
[2021-03-04] MEDS ORDERED: methaDONE 40 MG, methaDONE 30 MG PO ONE (08:00)
[2021-03-04] MEDS ORDERED: methaDONE HCL 40 MG DISPERSABLE TABLET ONE (08:06)
[2021-03-04] MEDS ORDERED: methaDONE HCL 10 MG TABLET ONE (08:06)
[2021-03-04 09:57] LABS: HEMATOCRIT 36.5 % (32.4-45.2); HEMOGLOBIN 11.7 GM/dL (10.7-15.3); MCH 27.1 pg (25.7-33.7); MCHC 31.9 g/dl (32.0-36.0); MEAN CELL VOLUME 84.8 fl (80-96); MEAN PLT VOLUME 8.7 fl (7.5-11.1); PLATELET COUNT 237 10^3/uL (134-434); RBC 4.31 M/mm3 (3.60-5.2); RDW 13.5 % (11.6-15.6); WHITE BLOOD COUNT 5.2 K/mm3 (4.0-10.0)
[2021-03-04 10:05] LABS: EPI CELLS 5 /uL (0-25.1); HYALINE CASTS 0 /uL (0-3.1); URINE APPEARANCE CLEAR; URINE BACTERIA 64 /uL (0-1359); URINE BILIRUBIN NEGATIVE (NEGATIVE); URINE COLOR YELLOW; URINE GLUCOSE (UA) NEGATIVE (NEGATIVE); URINE KETONE NEGATIVE (NEGATIVE); URINE LEUK ESTERASE NEGATIVE (NEGATIVE); URINE NITRITE NEGATIVE (NEGATIVE); URINE PROTEIN NEGATIVE (NEGATIVE); URINE RBC 14 /uL (0-23.9); URINE UROBILINOGEN 0.2 mg/dL (0.2-1.0); URINE WBC 2 /uL (0-25.8)
[2021-03-04] MEDS: GABAPENTIN 300 MG CAPSULE PO SCH ×2 (10:13→21:26)
[2021-03-04] MEDS: PRENATAL VITAMINS W/ FOLIC ACID TABLET (FP) PO SCH (10:13)
[2021-03-04] MEDS: NICOTINE 7 MG/24 HOURS TOPICAL PATCH TD SCH (10:13)
[2021-03-04 10:15] LABS: ALBUMIN 3.7 g/dl (3.4-5.0); CALCIUM 9.1 mg/dL (8.5-10.1)
[2021-03-04 10:18] LABS: CREATININE 0.9 mg/dL (0.55-1.3)
[2021-03-04 10:21] LABS: BILIRUBIN,TOTAL 0.7 mg/dL (0.2-1)
[2021-03-04 10:24] LABS: SYPHILIS W/ RPR CONF NON-REACTIVE (NONREACTIVE)
[2021-03-04] MEDS: MIRTAZAPINE 30 MG TABLET PO SCH (21:25)
[2021-03-04] MEDS: THIAMINE HCL 100 MG TABLET (FP) PO SCH (21:26)
[2021-03-05] MEDS ORDERED: methaDONE HCL 40 MG DISPERSABLE TABLET ONE (05:41)
[2021-03-05] MEDS ORDERED: methaDONE HCL 10 MG TABLET ONE (05:41)
[2021-03-05] MEDS: methaDONE 40 MG, methaDONE 30 MG PO SCH (06:31)
[2021-03-05] MEDS: hydrOXYzine PAMOATE 25 MG CAPSULE (FP) PO SCH ×5 (06:31→21:06)
[2021-03-05] MEDS: GABAPENTIN 300 MG CAPSULE PO SCH ×2 (10:14→21:06)
[2021-03-05] MEDS: PRENATAL VITAMINS W/ FOLIC ACID TABLET (FP) PO SCH (10:14)
[2021-03-05] MEDS: NICOTINE 7 MG/24 HOURS TOPICAL PATCH TD SCH (10:15)
[2021-03-05] MEDS: MIRTAZAPINE 30 MG TABLET PO SCH (21:06)
[2021-03-05] MEDS: THIAMINE HCL 100 MG TABLET (FP) PO SCH (21:06)
[2021-03-06] MEDS: ACETAMINOPHEN 325 MG TABLET (FP) PO PRN (02:38)
[2021-03-06] MEDS ORDERED: methaDONE HCL 40 MG DISPERSABLE TABLET ONE (02:47)
[2021-03-06] MEDS ORDERED: methaDONE HCL 10 MG TABLET ONE (02:48)
[2021-03-06] MEDS: methaDONE 40 MG, methaDONE 30 MG PO SCH (06:14)
[2021-03-06] MEDS: hydrOXYzine PAMOATE 25 MG CAPSULE (FP) PO SCH ×5 (06:15→21:03)
[2021-03-06] MEDS: GABAPENTIN 300 MG CAPSULE PO SCH ×2 (09:37→21:03)
[2021-03-06] MEDS: NICOTINE 10 MG CARTRIDGE (INHALER) IH PRN (09:37)
[2021-03-06] MEDS: PRENATAL VITAMINS W/ FOLIC ACID TABLET (FP) PO SCH (09:37)
[2021-03-06] MEDS: NICOTINE 7 MG/24 HOURS TOPICAL PATCH TD SCH (09:37)
[2021-03-06] MEDS: MAG HYDROX/AL HYDROX/SIMETH 30 ML UNIT-DOSE CUP PO PRN (18:49)
[2021-03-06] MEDS: MIRTAZAPINE 30 MG TABLET PO SCH (21:03)
[2021-03-06] MEDS: THIAMINE HCL 100 MG TABLET (FP) PO SCH (21:03)
[2021-03-07] MEDS ORDERED: methaDONE HCL 40 MG DISPERSABLE TABLET ONE (04:15)
[2021-03-07] MEDS ORDERED: methaDONE HCL 10 MG TABLET ONE (04:16)
[2021-03-07] MEDS: methaDONE 40 MG, methaDONE 30 MG PO SCH (06:15)
[2021-03-07] MEDS: hydrOXYzine PAMOATE 25 MG CAPSULE (FP) PO SCH ×5 (06:15→21:07)
[2021-03-07] MEDS: MAG HYDROX/AL HYDROX/SIMETH 30 ML UNIT-DOSE CUP PO PRN (06:29)
[2021-03-07] MEDS: PRENATAL VITAMINS W/ FOLIC ACID TABLET (FP) PO SCH (09:38)
[2021-03-07] MEDS: NICOTINE 7 MG/24 HOURS TOPICAL PATCH TD SCH (09:38)
[2021-03-07] MEDS: NICOTINE 10 MG CARTRIDGE (INHALER) IH PRN (09:38)
[2021-03-07] MEDS: GABAPENTIN 300 MG CAPSULE PO SCH ×2 (09:38→21:07)
[2021-03-07] MEDS: SIMETHICONE 80 MG TAB.CHEW (FP) PO PRN (13:28)
[2021-03-07] MEDS: MIRTAZAPINE 30 MG TABLET PO SCH (21:06)
[2021-03-07] MEDS: THIAMINE HCL 100 MG TABLET (FP) PO SCH (21:07)
[2021-03-08] MEDS ORDERED: methaDONE HCL 40 MG DISPERSABLE TABLET ONE (03:21)
[2021-03-08] MEDS ORDERED: methaDONE HCL 10 MG TABLET ONE (03:22)
[2021-03-08] MEDS: methaDONE 40 MG, methaDONE 30 MG PO SCH (06:01)
[2021-03-08] MEDS: ACETAMINOPHEN 325 MG TABLET (FP) PO PRN ×2 (06:01→10:48)
[2021-03-08] MEDS: hydrOXYzine PAMOATE 25 MG CAPSULE (FP) PO SCH ×5 (06:01→21:13)
[2021-03-08] MEDS: NICOTINE 7 MG/24 HOURS TOPICAL PATCH TD SCH (09:55)
[2021-03-08] MEDS: GABAPENTIN 300 MG CAPSULE PO SCH ×2 (09:55→21:13)
[2021-03-08] MEDS: PRENATAL VITAMINS W/ FOLIC ACID TABLET (FP) PO SCH (09:55)
[2021-03-08] MEDS: NICOTINE 10 MG CARTRIDGE (INHALER) IH PRN (09:55)
[2021-03-08] MEDS: SIMETHICONE 80 MG TAB.CHEW (FP) PO PRN (09:56)
[2021-03-08] MEDS: THIAMINE HCL 100 MG TABLET (FP) PO SCH (21:13)
[2021-03-08] MEDS: MIRTAZAPINE 30 MG TABLET PO SCH (21:13)
[2021-03-09] MEDS ORDERED: methaDONE HCL 40 MG DISPERSABLE TABLET ONE (02:54)
[2021-03-09] MEDS ORDERED: methaDONE HCL 10 MG TABLET ONE (02:55)
[2021-03-09] MEDS: methaDONE 40 MG, methaDONE 30 MG PO SCH (06:05)
[2021-03-09] MEDS: hydrOXYzine PAMOATE 25 MG CAPSULE (FP) PO SCH ×5 (06:05→21:10)
[2021-03-09] MEDS: IBUPROFEN 400 MG TABLET (FP) PO PRN ×2 (06:10→14:15)
[2021-03-09] MEDS: NICOTINE 10 MG CARTRIDGE (INHALER) IH PRN ×2 (08:33→18:52)
[2021-03-09] MEDS: PRENATAL VITAMINS W/ FOLIC ACID TABLET (FP) PO SCH (09:39)
[2021-03-09] MEDS: GABAPENTIN 300 MG CAPSULE PO SCH ×2 (09:39→21:10)
[2021-03-09] MEDS: MINERAL OIL/PETROLAT/WATER TOPICAL CREAM 113 GM JAR TP PRN (09:40)
[2021-03-09] MEDS: NICOTINE 7 MG/24 HOURS TOPICAL PATCH TD SCH (09:40)
[2021-03-09] MEDS: SIMETHICONE 80 MG TAB.CHEW (FP) PO PRN ×2 (09:40→18:11)
[2021-03-09] MEDS: THIAMINE HCL 100 MG TABLET (FP) PO SCH (21:10)
[2021-03-09] MEDS: MIRTAZAPINE 30 MG TABLET PO SCH (21:10)
[2021-03-10] MEDS ORDERED: methaDONE HCL 40 MG DISPERSABLE TABLET ONE (02:27)
[2021-03-10] MEDS ORDERED: methaDONE HCL 10 MG TABLET ONE (02:27)
[2021-03-10] MEDS: hydrOXYzine PAMOATE 25 MG CAPSULE (FP) PO SCH ×5 (05:45→22:18)
[2021-03-10] MEDS: methaDONE 40 MG, methaDONE 30 MG PO SCH (06:15)
[2021-03-10] MEDS: SIMETHICONE 80 MG TAB.CHEW (FP) PO PRN ×2 (06:16→10:51)
[2021-03-10] MEDS: NICOTINE 7 MG/24 HOURS TOPICAL PATCH TD SCH (10:48)
[2021-03-10] MEDS: GABAPENTIN 300 MG CAPSULE PO SCH ×2 (10:48→22:18)
[2021-03-10] MEDS: PRENATAL VITAMINS W/ FOLIC ACID TABLET (FP) PO SCH (10:48)
[2021-03-10] MEDS: IBUPROFEN 400 MG TABLET (FP) PO PRN (10:49)
[2021-03-10] MEDS: MINERAL OIL/PETROLAT/WATER TOPICAL CREAM 113 GM JAR TP PRN (10:49)
[2021-03-10] MEDS: MIRTAZAPINE 30 MG TABLET PO SCH (22:18)
[2021-03-10] MEDS: THIAMINE HCL 100 MG TABLET (FP) PO SCH (22:18)
[2021-03-11] MEDS ORDERED: methaDONE HCL 10 MG TABLET ONE (04:36)
[2021-03-11] MEDS ORDERED: methaDONE HCL 40 MG DISPERSABLE TABLET ONE (04:36)
[2021-03-11] MEDS: hydrOXYzine PAMOATE 25 MG CAPSULE (FP) PO SCH ×3 (06:32→14:38)
[2021-03-11] MEDS: methaDONE 40 MG, methaDONE 30 MG PO SCH (06:32)
[2021-03-11] MEDS: PRENATAL VITAMINS W/ FOLIC ACID TABLET (FP) PO SCH (10:58)
[2021-03-11] MEDS: GABAPENTIN 300 MG CAPSULE PO SCH ×2 (10:58→21:07)
[2021-03-11] MEDS: NICOTINE 7 MG/24 HOURS TOPICAL PATCH TD SCH (10:58)
[2021-03-11] MEDS: NICOTINE 10 MG CARTRIDGE (INHALER) IH PRN (10:59)
[2021-03-11] MEDS: SIMETHICONE 80 MG TAB.CHEW (FP) PO PRN (11:00)
[2021-03-11] MEDS: hydrOXYzine PAMOATE 25 MG CAPSULE (FP) PO PRN ×2 (14:37→21:09)
[2021-03-11] MEDS: MIRTAZAPINE 30 MG TABLET PO SCH (21:07)
[2021-03-11] MEDS: THIAMINE HCL 100 MG TABLET (FP) PO SCH (21:07)
[2021-03-11] MEDS: IBUPROFEN 400 MG TABLET (FP) PO PRN (21:07)
[2021-03-12] MEDS ORDERED: methaDONE HCL 10 MG TABLET PO SCH (06:00)
[2021-03-12] MEDS ORDERED: methaDONE HCL 10 MG TABLET ONE (06:35)
[2021-03-12] MEDS: hydrOXYzine PAMOATE 25 MG CAPSULE (FP) PO PRN ×2 (06:36→21:34)
[2021-03-12] MEDS ORDERED: methaDONE HCL 40 MG DISPERSABLE TABLET ONE (06:36)
[2021-03-12] MEDS: ACETAMINOPHEN 325 MG TABLET (FP) PO PRN (06:36)
[2021-03-12] MEDS: methaDONE 40 MG, methaDONE 30 MG PO SCH (06:37)
[2021-03-12] MEDS: PRENATAL VITAMINS W/ FOLIC ACID TABLET (FP) PO SCH (11:15)
[2021-03-12] MEDS: SIMETHICONE 80 MG TAB.CHEW (FP) PO PRN (11:17)
[2021-03-12] MEDS: GABAPENTIN 300 MG CAPSULE PO SCH ×2 (11:20→21:34)
[2021-03-12] MEDS: NICOTINE 7 MG/24 HOURS TOPICAL PATCH TD SCH (11:20)
[2021-03-12] MEDS: MIRTAZAPINE 30 MG TABLET PO SCH (21:34)
[2021-03-12] MEDS: THIAMINE HCL 100 MG TABLET (FP) PO SCH (21:34)
[2021-03-13] MEDS ORDERED: methaDONE HCL 40 MG DISPERSABLE TABLET ONE (03:49)
[2021-03-13] MEDS ORDERED: methaDONE HCL 10 MG TABLET ONE (03:49)
[2021-03-13] MEDS: methaDONE 40 MG, methaDONE 30 MG PO SCH (06:23)
[2021-03-13] MEDS: SIMETHICONE 80 MG TAB.CHEW (FP) PO PRN (06:24)
[2021-03-13] MEDS: GABAPENTIN 300 MG CAPSULE PO SCH ×2 (10:34→21:32)
[2021-03-13] MEDS: NICOTINE 7 MG/24 HOURS TOPICAL PATCH TD SCH (10:34)
[2021-03-13] MEDS: PRENATAL VITAMINS W/ FOLIC ACID TABLET (FP) PO SCH (10:34)
[2021-03-13] MEDS: NICOTINE 10 MG CARTRIDGE (INHALER) IH PRN (10:34)
[2021-03-13] MEDS: IBUPROFEN 400 MG TABLET (FP) PO PRN (13:40)
[2021-03-13] MEDS: THIAMINE HCL 100 MG TABLET (FP) PO SCH (21:32)
[2021-03-13] MEDS: MIRTAZAPINE 30 MG TABLET PO SCH (21:32)
[2021-03-13] MEDS: hydrOXYzine PAMOATE 25 MG CAPSULE (FP) PO PRN (21:32)
[2021-03-14] MEDS ORDERED: methaDONE HCL 40 MG DISPERSABLE TABLET ONE (03:47)
[2021-03-14] MEDS ORDERED: methaDONE HCL 10 MG TABLET ONE (03:47)
[2021-03-14] MEDS: methaDONE 40 MG, methaDONE 30 MG PO SCH (06:21)
[2021-03-14] MEDS: ACETAMINOPHEN 325 MG TABLET (FP) PO PRN (06:24)
[2021-03-14] MEDS: SIMETHICONE 80 MG TAB.CHEW (FP) PO PRN (06:24)
[2021-03-14] MEDS: PRENATAL VITAMINS W/ FOLIC ACID TABLET (FP) PO SCH (10:43)
[2021-03-14] MEDS: NICOTINE 7 MG/24 HOURS TOPICAL PATCH TD SCH (10:43)
[2021-03-14] MEDS: GABAPENTIN 300 MG CAPSULE PO SCH ×2 (10:43→21:11)
[2021-03-14] MEDS: MINERAL OIL/PETROLAT/WATER TOPICAL CREAM 113 GM JAR TP PRN (10:44)
[2021-03-14] MEDS: cloNIDine HCL 0.1 MG TABLET PO PRN (13:51)
[2021-03-14] MEDS: IBUPROFEN 400 MG TABLET (FP) PO PRN (13:51)
[2021-03-14] MEDS: NICOTINE 10 MG CARTRIDGE (INHALER) IH PRN (17:17)
[2021-03-14] MEDS: hydrOXYzine PAMOATE 25 MG CAPSULE (FP) PO PRN (21:11)
[2021-03-14] MEDS: THIAMINE HCL 100 MG TABLET (FP) PO SCH (21:11)
[2021-03-14] MEDS: MIRTAZAPINE 30 MG TABLET PO SCH (21:11)
[2021-03-15] MEDS ORDERED: methaDONE HCL 10 MG TABLET ONE (03:12)
[2021-03-15] MEDS ORDERED: methaDONE HCL 40 MG DISPERSABLE TABLET ONE (03:12)
[2021-03-15] MEDS: methaDONE 40 MG, methaDONE 30 MG PO SCH (06:22)
[2021-03-15] MEDS: PRENATAL VITAMINS W/ FOLIC ACID TABLET (FP) PO SCH (10:33)
[2021-03-15] MEDS: SIMETHICONE 80 MG TAB.CHEW (FP) PO PRN (10:34)
[2021-03-15] MEDS: GABAPENTIN 300 MG CAPSULE PO SCH ×2 (10:34→21:10)
[2021-03-15] MEDS: NICOTINE 7 MG/24 HOURS TOPICAL PATCH TD SCH (10:34)
[2021-03-15] MEDS: MINERAL OIL/PETROLAT/WATER TOPICAL CREAM 113 GM JAR TP PRN (10:34)
[2021-03-15] MEDS: IBUPROFEN 400 MG TABLET (FP) PO PRN (14:06)
[2021-03-15] MEDS: MIRTAZAPINE 30 MG TABLET PO SCH (21:10)
[2021-03-15] MEDS: hydrOXYzine PAMOATE 25 MG CAPSULE (FP) PO PRN (21:10)
[2021-03-15] MEDS: THIAMINE HCL 100 MG TABLET (FP) PO SCH (21:10)
[2021-03-15] MEDS: NICOTINE 10 MG CARTRIDGE (INHALER) IH PRN (21:11)
[2021-03-16] MEDS ORDERED: methaDONE HCL 40 MG DISPERSABLE TABLET ONE (03:04)
[2021-03-16] MEDS ORDERED: methaDONE HCL 10 MG TABLET ONE (03:04)
[2021-03-16] MEDS: methaDONE 40 MG, methaDONE 30 MG PO SCH (06:58)
[2021-03-16] MEDS: GABAPENTIN 300 MG CAPSULE PO SCH ×2 (10:31→21:33)
[2021-03-16] MEDS: PRENATAL VITAMINS W/ FOLIC ACID TABLET (FP) PO SCH (10:31)
[2021-03-16] MEDS: NICOTINE 7 MG/24 HOURS TOPICAL PATCH TD SCH (10:31)
[2021-03-16] MEDS: NICOTINE 10 MG CARTRIDGE (INHALER) IH PRN (10:32)
[2021-03-16] MEDS ORDERED: COLLOIDAL OATMEAL 1 BAR EACH TP PRN (16:03)
[2021-03-16] MEDS: hydrOXYzine PAMOATE 25 MG CAPSULE (FP) PO PRN (21:33)
[2021-03-16] MEDS: THIAMINE HCL 100 MG TABLET (FP) PO SCH (21:33)
[2021-03-16] MEDS: MIRTAZAPINE 30 MG TABLET PO SCH (21:33)
[2021-03-17] MEDS ORDERED: methaDONE HCL 40 MG DISPERSABLE TABLET ONE (03:23)
[2021-03-17] MEDS ORDERED: methaDONE HCL 10 MG TABLET ONE (03:23)
[2021-03-17] MEDS: methaDONE 40 MG, methaDONE 30 MG PO SCH (06:10)
[2021-03-17] MEDS: cloNIDine HCL 0.1 MG TABLET PO PRN (06:10)
[2021-03-17] MEDS: SIMETHICONE 80 MG TAB.CHEW (FP) PO PRN ×2 (06:12→10:57)
[2021-03-17] MEDS: NICOTINE 7 MG/24 HOURS TOPICAL PATCH TD SCH (10:56)
[2021-03-17] MEDS: GABAPENTIN 300 MG CAPSULE PO SCH ×2 (10:56→21:11)
[2021-03-17] MEDS: PRENATAL VITAMINS W/ FOLIC ACID TABLET (FP) PO SCH (10:56)
[2021-03-17] MEDS: NICOTINE 10 MG CARTRIDGE (INHALER) IH PRN ×2 (10:57→18:08)
[2021-03-17] MEDS: MIRTAZAPINE 30 MG TABLET PO SCH (21:11)
[2021-03-17] MEDS: THIAMINE HCL 100 MG TABLET (FP) PO SCH (21:11)
[2021-03-17] MEDS: hydrOXYzine PAMOATE 25 MG CAPSULE (FP) PO PRN (21:12)
[2021-03-18] MEDS ORDERED: methaDONE HCL 40 MG DISPERSABLE TABLET ONE (03:58)
[2021-03-18] MEDS ORDERED: methaDONE HCL 10 MG TABLET ONE (03:58)
[2021-03-18] MEDS: methaDONE 40 MG, methaDONE 30 MG PO SCH (06:05)
[2021-03-18] MEDS: PRENATAL VITAMINS W/ FOLIC ACID TABLET (FP) PO SCH (10:49)
[2021-03-18] MEDS: NICOTINE 7 MG/24 HOURS TOPICAL PATCH TD SCH (10:49)
[2021-03-18] MEDS: GABAPENTIN 300 MG CAPSULE PO SCH ×2 (10:49→21:10)
[2021-03-18] MEDS: MINERAL OIL/PETROLAT/WATER TOPICAL CREAM 113 GM JAR TP PRN (10:50)
[2021-03-18] MEDS: THIAMINE HCL 100 MG TABLET (FP) PO SCH (21:10)
[2021-03-18] MEDS: MIRTAZAPINE 30 MG TABLET PO SCH (21:10)
[2021-03-18] MEDS: hydrOXYzine PAMOATE 25 MG CAPSULE (FP) PO PRN (21:10)
[2021-03-18] MEDS: cloNIDine HCL 0.1 MG TABLET PO PRN (21:12)
[2021-03-19] MEDS ORDERED: methaDONE HCL 40 MG DISPERSABLE TABLET ONE (06:08)
[2021-03-19] MEDS ORDERED: methaDONE HCL 10 MG TABLET ONE (06:08)
[2021-03-19] MEDS: methaDONE 40 MG, methaDONE 30 MG PO SCH (06:09)
[2021-03-19] MEDS: SIMETHICONE 80 MG TAB.CHEW (FP) PO PRN ×2 (06:10→10:27)
[2021-03-19] MEDS: NICOTINE 7 MG/24 HOURS TOPICAL PATCH TD SCH (10:26)
[2021-03-19] MEDS: PRENATAL VITAMINS W/ FOLIC ACID TABLET (FP) PO SCH (10:26)
[2021-03-19] MEDS: GABAPENTIN 300 MG CAPSULE PO SCH ×2 (10:26→21:47)
[2021-03-19] MEDS: MINERAL OIL/PETROLAT/WATER TOPICAL CREAM 113 GM JAR TP PRN (10:28)
[2021-03-19] MEDS: NICOTINE 10 MG CARTRIDGE (INHALER) IH PRN (10:28)
[2021-03-19] MEDS: IBUPROFEN 400 MG TABLET (FP) PO PRN (15:42)
[2021-03-19] MEDS: MIRTAZAPINE 30 MG TABLET PO SCH (21:47)
[2021-03-19] MEDS: hydrOXYzine PAMOATE 25 MG CAPSULE (FP) PO PRN (21:48)
[2021-03-19] MEDS: THIAMINE HCL 100 MG TABLET (FP) PO SCH (21:48)
[2021-03-20] MEDS ORDERED: methaDONE HCL 40 MG DISPERSABLE TABLET ONE (03:16)
[2021-03-20] MEDS ORDERED: methaDONE HCL 10 MG TABLET ONE (03:16)
[2021-03-20] MEDS: methaDONE 40 MG, methaDONE 30 MG PO SCH (06:23)
[2021-03-20] MEDS: cloNIDine HCL 0.1 MG TABLET PO PRN (06:28)
[2021-03-20] MEDS: PRENATAL VITAMINS W/ FOLIC ACID TABLET (FP) PO SCH (10:21)
[2021-03-20] MEDS: hydrOXYzine PAMOATE 25 MG CAPSULE (FP) PO PRN ×2 (10:21→21:44)
[2021-03-20] MEDS: GABAPENTIN 300 MG CAPSULE PO SCH ×2 (10:21→21:43)
[2021-03-20] MEDS: NICOTINE 7 MG/24 HOURS TOPICAL PATCH TD SCH (10:21)
[2021-03-20] MEDS: SIMETHICONE 80 MG TAB.CHEW (FP) PO PRN (10:22)
[2021-03-20] MEDS: MIRTAZAPINE 30 MG TABLET PO SCH (21:43)
[2021-03-20] MEDS: THIAMINE HCL 100 MG TABLET (FP) PO SCH (21:43)
[2021-03-21] MEDS ORDERED: methaDONE HCL 40 MG DISPERSABLE TABLET ONE (03:12)
[2021-03-21] MEDS ORDERED: methaDONE HCL 10 MG TABLET ONE (03:12)
[2021-03-21] MEDS: methaDONE 40 MG, methaDONE 30 MG PO SCH (06:12)
[2021-03-21] MEDS: PRENATAL VITAMINS W/ FOLIC ACID TABLET (FP) PO SCH (10:25)
[2021-03-21] MEDS: GABAPENTIN 300 MG CAPSULE PO SCH ×2 (10:25→21:42)
[2021-03-21] MEDS: MINERAL OIL/PETROLAT/WATER TOPICAL CREAM 113 GM JAR TP PRN (10:26)
[2021-03-21] MEDS: NICOTINE 7 MG/24 HOURS TOPICAL PATCH TD SCH (10:26)
[2021-03-21] MEDS: SIMETHICONE 80 MG TAB.CHEW (FP) PO PRN (10:27)
[2021-03-21] MEDS: hydrOXYzine PAMOATE 25 MG CAPSULE (FP) PO PRN (21:42)
[2021-03-21] MEDS: THIAMINE HCL 100 MG TABLET (FP) PO SCH (21:42)
[2021-03-21] MEDS: MIRTAZAPINE 30 MG TABLET PO SCH (21:42)
[2021-03-22] MEDS ORDERED: methaDONE HCL 10 MG TABLET ONE (05:42)
[2021-03-22] MEDS ORDERED: methaDONE HCL 40 MG DISPERSABLE TABLET ONE (05:42)
[2021-03-22] MEDS: methaDONE 40 MG, methaDONE 30 MG PO SCH (06:06)
[2021-03-22] MEDS: SIMETHICONE 80 MG TAB.CHEW (FP) PO PRN ×2 (06:10→11:03)
[2021-03-22] MEDS: GABAPENTIN 300 MG CAPSULE PO SCH ×2 (11:02→21:11)
[2021-03-22] MEDS: PRENATAL VITAMINS W/ FOLIC ACID TABLET (FP) PO SCH (11:02)
[2021-03-22] MEDS: NICOTINE 7 MG/24 HOURS TOPICAL PATCH TD SCH (11:03)
[2021-03-22] MEDS: MINERAL OIL/PETROLAT/WATER TOPICAL CREAM 113 GM JAR TP PRN (11:04)
[2021-03-22] MEDS: THIAMINE HCL 100 MG TABLET (FP) PO SCH (21:11)
[2021-03-22] MEDS: MIRTAZAPINE 30 MG TABLET PO SCH (21:11)
[2021-03-22] MEDS: hydrOXYzine PAMOATE 25 MG CAPSULE (FP) PO PRN (21:12)
[2021-03-23] MEDS ORDERED: methaDONE HCL 10 MG TABLET ONE (02:56)
[2021-03-23] MEDS ORDERED: methaDONE HCL 40 MG DISPERSABLE TABLET ONE (02:56)
[2021-03-23] MEDS: methaDONE 40 MG, methaDONE 30 MG PO SCH (06:14)
[2021-03-23] MEDS: SIMETHICONE 80 MG TAB.CHEW (FP) PO PRN ×2 (06:16→10:56)
[2021-03-23] MEDS: PRENATAL VITAMINS W/ FOLIC ACID TABLET (FP) PO SCH (10:56)
[2021-03-23] MEDS: GABAPENTIN 300 MG CAPSULE PO SCH ×2 (10:56→21:05)
[2021-03-23] MEDS: NICOTINE 7 MG/24 HOURS TOPICAL PATCH TD SCH (10:56)
[2021-03-23] MEDS: MINERAL OIL/PETROLAT/WATER TOPICAL CREAM 113 GM JAR TP PRN (10:57)
[2021-03-23] MEDS: THIAMINE HCL 100 MG TABLET (FP) PO SCH (21:05)
[2021-03-23] MEDS: MIRTAZAPINE 30 MG TABLET PO SCH (21:05)
[2021-03-23] MEDS: hydrOXYzine PAMOATE 25 MG CAPSULE (FP) PO PRN (21:05)
[2021-03-24] MEDS ORDERED: methaDONE HCL 10 MG TABLET ONE (03:03)
[2021-03-24] MEDS ORDERED: methaDONE HCL 40 MG DISPERSABLE TABLET ONE (03:03)
[2021-03-24] MEDS: methaDONE 40 MG, methaDONE 30 MG PO SCH (06:09)
[2021-03-24 07:32] VITALS: TEMP 97.5
[2021-03-24] MEDS: IBUPROFEN 400 MG TABLET (FP) PO PRN (08:03)
[2021-03-24] MEDS: GABAPENTIN 300 MG CAPSULE PO SCH (10:17)
[2021-03-24] MEDS: PRENATAL VITAMINS W/ FOLIC ACID TABLET (FP) PO SCH (10:17)
[2021-03-24] MEDS: NICOTINE 7 MG/24 HOURS TOPICAL PATCH TD SCH (10:22)
[2021-03-24 11:06] VITALS: BP 125/73; PULSE 71
== END 2021-03-24 10:20 | disposition home or self-care (01) | DRG 772 ==
LOC: YASAS 17:17 → Y3W 18:50 → Y5N 03-09 10:43
PROVIDERS: ADMIT Allergy & Immunology; ATTEND Allergy & Immunology
PROC: HZ42ZZZ Group Counseling for Substance Abuse Treatment, Cognitive-Behavioral (ICD-10-PCS; principal; 2021-03-03)
DX: F11.20 Opioid dependence, uncomplicated (principal); F14.20 Cocaine dependence, uncomplicated; F12.20 Cannabis dependence, uncomplicated; F17.210 Nicotine dependence, cigarettes, uncomplicated; F31.9 Bipolar disorder, unspecified; F19.282 Other psychoactive substance dependence with psychoactive substance-induced sleep disorder; F19.280 Other psychoactive substance dependence with psychoactive substance-induced anxiety disorder; F43.10 Post-traumatic stress disorder, unspecified; G62.9 Polyneuropathy, unspecified; G47.00 Insomnia, unspecified; M54.50 Low back pain, unspecified; R26.89 Other abnormalities of gait and mobility; M19.90 Unspecified osteoarthritis, unspecified site; R03.0 Elevated blood-pressure reading, without diagnosis of hypertension; Z62.810 Personal history of physical and sexual abuse in childhood; Z91.410 Personal history of adult physical and sexual abuse; Z86.69 Personal history of other diseases of the nervous system and sense organs; Z86.2 Personal history of diseases of the blood and blood-forming organs and certain disorders involving the immune mechanism; Z87.39 Personal history of other diseases of the musculoskeletal system and connective tissue
CPT/HCPCS: 36415; 80053; 81003; 82962; 85027; 86780; 86803; 87811; C9803; J0735; U0003; U0005

== ENCOUNTER 2021-06-11 22:44 | Inpatient (IN) | payer OTHER ==
[2021-06-11 23:04] VITALS: BMI 27.6
[2021-06-11] MEDS ORDERED: guaiFENesin 200 MG/10 ML 10 ML UNIT-DOSE CUPS PO PRN (23:23)
[2021-06-11] MEDS ORDERED: ACETAMINOPHEN 325 MG TABLET (FP) PO PRN ×2 (23:23)
[2021-06-11] MEDS ORDERED: MAGNESIUM HYDROX 2400MG/30ML ORAL SUSPENSION 30 ML CUP PO PRN (23:23)
[2021-06-11] MEDS ORDERED: NALOXONE HCL (KLOXXADO) 8 MG SPRAY NS PRN (23:23)
[2021-06-11] MEDS ORDERED: BISMUTH SUBSALICYLATE 524 MG/30 ML PO PRN (23:23)
[2021-06-11] MEDS ORDERED: IBUPROFEN 400 MG TABLET (FP) PO PRN (23:23)
[2021-06-11] MEDS ORDERED: MAG HYDROX/AL HYDROX/SIMETH 30 ML UNIT-DOSE CUP PO PRN (23:23)
[2021-06-11] MEDS ORDERED: MAGNESIUM CITRATE 300 ML BOTTLE PO PRN (23:23)
[2021-06-11] MEDS ORDERED: LOPERAMIDE HCL 2 MG CAPSULE PO PRN (23:23)
[2021-06-11] MEDS ORDERED: BENZOCAINE/MENTHOL (CHLORASEPTIC ) LOZENGE MM PRN (23:23)
[2021-06-11] MEDS ORDERED: ONDANSETRON *ODT* 4 MG TABLET SL PRN (23:23)
[2021-06-11] MEDS ORDERED: P-EPHED 60MG/TRIPROLIDI 2.5MG TABLET PO PRN (23:23)
[2021-06-11] MEDS ORDERED: NICOTINE POLACRILEX 2 MG GUM BUC PRN (23:23)
[2021-06-11] MEDS ORDERED: METHOCARBAMOL 500 MG TABLET PO PRN (23:23)
[2021-06-11] MEDS ORDERED: DICYCLOMINE HCL 10 MG CAPSULE PO PRN (23:23)
[2021-06-12] MEDS: PRENATAL VITAMINS W/ FOLIC ACID TABLET (FP) PO SCH (10:16)
[2021-06-12] MEDS: NICOTINE 21 MG/24 HOURS TOPICAL PATCH TD SCH (10:17)
[2021-06-12] MEDS ORDERED: methaDONE HCL 10 MG TABLET (FOR DETOX USE ONLY) PO ONE (13:45)
[2021-06-12] MEDS ORDERED: THIAMINE HCL 100 MG TABLET (FP) PO SCH (22:00)
[2021-06-12] MEDS ORDERED: MELATONIN 5 MG TABLETS PO SCH (22:00)
[2021-06-13] MEDS ORDERED: methaDONE HCL 10 MG TABLET PO ONE (09:01)
[2021-06-13] MEDS ORDERED: methaDONE 40 MG, methaDONE 30 MG PO ONE (09:15)
[2021-06-13 09:31] VITALS: BP 142/69; PULSE 65; TEMP 98
[2021-06-13] MEDS ORDERED: methaDONE HCL 40 MG DISPERSABLE TABLET ONE (09:51)
[2021-06-13] MEDS ORDERED: methaDONE HCL 10 MG TABLET ONE (09:51)
[2021-06-13] MEDS: PRENATAL VITAMINS W/ FOLIC ACID TABLET (FP) PO SCH (10:08)
[2021-06-13] MEDS: NICOTINE 21 MG/24 HOURS TOPICAL PATCH TD SCH (10:09)
[2021-06-13] MEDS ORDERED: hydrOXYzine PAMOATE 25 MG CAPSULE (FP) PO PRN (10:29)
[2021-06-13] MEDS ORDERED: GABAPENTIN 300 MG CAPSULE PO SCH (10:30)
[2021-06-13 12:37] LABS: HEMATOCRIT 35.7 % (32.4-45.2); MCH 28.1 pg (25.7-33.7); MCHC 33.5 g/dl (32.0-36.0); MEAN CELL VOLUME 83.8 fl (80-96); MEAN PLT VOLUME 8.9 fl (7.5-11.1); PLATELET COUNT 207 10^3/uL (134-434); RBC 4.27 M/mm3 (3.60-5.2); RDW 13.4 % (11.6-15.6); WHITE BLOOD COUNT 4.9 K/mm3 (4.0-10.0)
[2021-06-13 13:00] LABS: ALBUMIN 3.4 g/dl (3.4-5.0); BLOOD UREA NITROGEN 10.8 mg/dL (7-18); CALCIUM 8.7 mg/dL (8.5-10.1)
[2021-06-13 13:03] LABS: CREATININE 0.8 mg/dL (0.55-1.3)
[2021-06-13 13:05] LABS: BILIRUBIN,TOTAL 0.8 mg/dL (0.2-1); TOT PROT 6.6 g/dl (6.4-8.2)
[2021-06-13] MEDS ORDERED: MIRTAZAPINE 30 MG TABLET PO SCH (22:00)
[2021-06-14] MEDS ORDERED: methaDONE HCL 10 MG TABLET PO SCH (06:00)
[2021-06-14] MEDS ORDERED: methaDONE 40 MG, methaDONE 30 MG PO SCH (06:00)
== END 2021-06-13 12:44 | disposition other institution (70) | DRG 773 ==
LOC: YASAS 22:44 → Y6N 06-12 10:16
PROVIDERS: ADMIT Allergy & Immunology; ATTEND Allergy & Immunology
PROC: HZ2ZZZZ Detoxification Services for Substance Abuse Treatment (ICD-10-PCS; principal; 2021-06-12)
DX: F11.23 Opioid dependence with withdrawal (principal); F14.20 Cocaine dependence, uncomplicated; F17.210 Nicotine dependence, cigarettes, uncomplicated; F19.280 Other psychoactive substance dependence with psychoactive substance-induced anxiety disorder; F19.282 Other psychoactive substance dependence with psychoactive substance-induced sleep disorder; F31.9 Bipolar disorder, unspecified; F43.10 Post-traumatic stress disorder, unspecified; G62.9 Polyneuropathy, unspecified; Z62.810 Personal history of physical and sexual abuse in childhood; Z91.410 Personal history of adult physical and sexual abuse
CPT/HCPCS: 36415; 80053; 85027; 86780; 87811; C9803-CS; U0003; U0005

== ENCOUNTER 2021-06-13 13:00 | Inpatient (IN) | payer OTHER ==
[2021-06-13] MEDS ORDERED: BENZOCAINE/MENTHOL (CHLORASEPTIC ) LOZENGE MM PRN (15:26)
[2021-06-13] MEDS ORDERED: P-EPHED 60MG/TRIPROLIDI 2.5MG TABLET PO PRN (15:26)
[2021-06-13] MEDS ORDERED: LOPERAMIDE HCL 2 MG CAPSULE PO PRN (15:26)
[2021-06-13] MEDS ORDERED: guaiFENesin 200 MG/10 ML 10 ML UNIT-DOSE CUPS PO PRN (15:26)
[2021-06-13] MEDS ORDERED: hydrOXYzine PAMOATE 25 MG CAPSULE (FP) PO PRN (15:26)
[2021-06-13] MEDS ORDERED: ACETAMINOPHEN 325 MG TABLET (FP) PO PRN (15:26)
[2021-06-13] MEDS ORDERED: MAGNESIUM CITRATE 300 ML BOTTLE PO PRN (15:26)
[2021-06-13] MEDS ORDERED: MAG HYDROX/AL HYDROX/SIMETH 30 ML UNIT-DOSE CUP PO PRN (15:26)
[2021-06-13] MEDS ORDERED: MAGNESIUM HYDROX 2400MG/30ML ORAL SUSPENSION 30 ML CUP PO PRN (15:26)
[2021-06-13] MEDS: MELATONIN 5 MG TABLETS PO SCH (21:42)
[2021-06-13] MEDS: COLLOIDAL OATMEAL 1 BAR EACH TP PRN (21:42)
[2021-06-13] MEDS: THIAMINE HCL 100 MG TABLET (FP) PO SCH (21:42)
[2021-06-13] MEDS: GABAPENTIN 300 MG CAPSULE PO SCH (21:42)
[2021-06-13] MEDS: MIRTAZAPINE 30 MG TABLET PO SCH (21:42)
[2021-06-13] MEDS: NICOTINE 10 MG CARTRIDGE (INHALER) IH PRN (21:43)
[2021-06-14] MEDS: methaDONE 40 MG, methaDONE 30 MG PO SCH (06:32)
[2021-06-14] MEDS ORDERED: methaDONE HCL 10 MG TABLET ONE (06:32)
[2021-06-14] MEDS ORDERED: methaDONE HCL 40 MG DISPERSABLE TABLET ONE (06:32)
[2021-06-14] MEDS ORDERED: methaDONE HCL 40 MG DISPERSABLE TABLET PO SCH (10:00)
[2021-06-14] MEDS: NICOTINE 7 MG/24 HOURS TOPICAL PATCH TD SCH (10:09)
[2021-06-14] MEDS: GABAPENTIN 300 MG CAPSULE PO SCH ×2 (10:09→21:31)
[2021-06-14] MEDS: PRENATAL VITAMINS W/ FOLIC ACID TABLET (FP) PO SCH (10:09)
[2021-06-14] MEDS: MIRTAZAPINE 30 MG TABLET PO SCH (21:30)
[2021-06-14] MEDS: THIAMINE HCL 100 MG TABLET (FP) PO SCH (21:30)
[2021-06-14] MEDS: MELATONIN 5 MG TABLETS PO SCH (21:31)
[2021-06-15] MEDS ORDERED: methaDONE HCL 40 MG DISPERSABLE TABLET ONE (04:02)
[2021-06-15] MEDS ORDERED: methaDONE HCL 10 MG TABLET ONE (04:02)
[2021-06-15] MEDS: methaDONE 40 MG, methaDONE 30 MG PO SCH (06:25)
[2021-06-15] MEDS: PRENATAL VITAMINS W/ FOLIC ACID TABLET (FP) PO SCH (10:12)
[2021-06-15] MEDS: GABAPENTIN 300 MG CAPSULE PO SCH ×2 (10:13→21:42)
[2021-06-15] MEDS: NICOTINE 7 MG/24 HOURS TOPICAL PATCH TD SCH (10:13)
[2021-06-15] MEDS: NICOTINE 10 MG CARTRIDGE (INHALER) IH PRN (10:13)
[2021-06-15] MEDS: MIRTAZAPINE 30 MG TABLET PO SCH (21:42)
[2021-06-15] MEDS: THIAMINE HCL 100 MG TABLET (FP) PO SCH (21:42)
[2021-06-15] MEDS: MELATONIN 5 MG TABLETS PO SCH (21:42)
[2021-06-16] MEDS ORDERED: methaDONE HCL 10 MG TABLET ONE (04:17)
[2021-06-16] MEDS ORDERED: methaDONE HCL 40 MG DISPERSABLE TABLET ONE (04:18)
[2021-06-16] MEDS: methaDONE 40 MG, methaDONE 30 MG PO SCH (05:54)
[2021-06-16] MEDS: PRENATAL VITAMINS W/ FOLIC ACID TABLET (FP) PO SCH (10:26)
[2021-06-16] MEDS: GABAPENTIN 300 MG CAPSULE PO SCH ×2 (10:26→21:31)
[2021-06-16] MEDS: NICOTINE 7 MG/24 HOURS TOPICAL PATCH TD SCH (10:26)
[2021-06-16] MEDS: THIAMINE HCL 100 MG TABLET (FP) PO SCH (21:31)
[2021-06-16] MEDS: MIRTAZAPINE 30 MG TABLET PO SCH (21:31)
[2021-06-16] MEDS: MELATONIN 5 MG TABLETS PO SCH (21:32)
[2021-06-17] MEDS ORDERED: methaDONE HCL 40 MG DISPERSABLE TABLET ONE (05:09)
[2021-06-17] MEDS ORDERED: methaDONE HCL 10 MG TABLET ONE (05:09)
[2021-06-17] MEDS: methaDONE 40 MG, methaDONE 30 MG PO SCH (05:59)
[2021-06-17] MEDS: GABAPENTIN 300 MG CAPSULE PO SCH ×2 (10:19→21:32)
[2021-06-17] MEDS: PRENATAL VITAMINS W/ FOLIC ACID TABLET (FP) PO SCH (10:19)
[2021-06-17] MEDS: NICOTINE 7 MG/24 HOURS TOPICAL PATCH TD SCH (10:20)
[2021-06-17 14:14] LABS: SARS-CoV-2 NAA Not Detected (Not Detected)
[2021-06-17] MEDS: MIRTAZAPINE 30 MG TABLET PO SCH (21:32)
[2021-06-17] MEDS: MELATONIN 5 MG TABLETS PO SCH (21:32)
[2021-06-17] MEDS: THIAMINE HCL 100 MG TABLET (FP) PO SCH (21:32)
[2021-06-18] MEDS ORDERED: methaDONE HCL 10 MG TABLET ONE (06:19)
[2021-06-18] MEDS ORDERED: methaDONE HCL 40 MG DISPERSABLE TABLET ONE (06:19)
[2021-06-18] MEDS: methaDONE 40 MG, methaDONE 30 MG PO SCH (06:20)
[2021-06-18] MEDS: NICOTINE 10 MG CARTRIDGE (INHALER) IH PRN ×2 (06:27→10:27)
[2021-06-18] MEDS: NICOTINE 7 MG/24 HOURS TOPICAL PATCH TD SCH (10:28)
[2021-06-18] MEDS: PRENATAL VITAMINS W/ FOLIC ACID TABLET (FP) PO SCH (10:28)
[2021-06-18] MEDS: GABAPENTIN 300 MG CAPSULE PO SCH ×2 (10:28→21:27)
[2021-06-18] MEDS: THIAMINE HCL 100 MG TABLET (FP) PO SCH (21:27)
[2021-06-18] MEDS: MELATONIN 5 MG TABLETS PO SCH (21:27)
[2021-06-18] MEDS: MIRTAZAPINE 30 MG TABLET PO SCH (21:27)
[2021-06-19] MEDS ORDERED: methaDONE HCL 40 MG DISPERSABLE TABLET ONE (05:05)
[2021-06-19] MEDS ORDERED: methaDONE HCL 10 MG TABLET ONE (05:05)
[2021-06-19] MEDS: methaDONE 40 MG, methaDONE 30 MG PO SCH (06:23)
[2021-06-19] MEDS: GABAPENTIN 300 MG CAPSULE PO SCH ×2 (10:27→21:42)
[2021-06-19] MEDS: PRENATAL VITAMINS W/ FOLIC ACID TABLET (FP) PO SCH (10:27)
[2021-06-19] MEDS: NICOTINE 7 MG/24 HOURS TOPICAL PATCH TD SCH (10:27)
[2021-06-19] MEDS: THIAMINE HCL 100 MG TABLET (FP) PO SCH (21:42)
[2021-06-19] MEDS: MIRTAZAPINE 30 MG TABLET PO SCH (21:42)
[2021-06-19] MEDS: MELATONIN 5 MG TABLETS PO SCH (21:42)
[2021-06-20] MEDS ORDERED: methaDONE HCL 10 MG TABLET ONE (03:03)
[2021-06-20] MEDS ORDERED: methaDONE HCL 40 MG DISPERSABLE TABLET ONE (03:03)
[2021-06-20] MEDS: methaDONE 40 MG, methaDONE 30 MG PO SCH (06:25)
[2021-06-20] MEDS: PRENATAL VITAMINS W/ FOLIC ACID TABLET (FP) PO SCH (10:33)
[2021-06-20] MEDS: GABAPENTIN 300 MG CAPSULE PO SCH ×2 (10:34→21:44)
[2021-06-20] MEDS: NICOTINE 7 MG/24 HOURS TOPICAL PATCH TD SCH (10:34)
[2021-06-20] MEDS: COLLOIDAL OATMEAL 1 BAR EACH TP PRN (10:35)
[2021-06-20] MEDS: THIAMINE HCL 100 MG TABLET (FP) PO SCH (21:43)
[2021-06-20] MEDS: MIRTAZAPINE 30 MG TABLET PO SCH (21:43)
[2021-06-20] MEDS: MELATONIN 5 MG TABLETS PO SCH (21:44)
[2021-06-21] MEDS ORDERED: methaDONE HCL 10 MG TABLET ONE (04:03)
[2021-06-21] MEDS ORDERED: methaDONE HCL 40 MG DISPERSABLE TABLET ONE (04:03)
[2021-06-21] MEDS: methaDONE 40 MG, methaDONE 30 MG PO SCH (06:25)
[2021-06-21] MEDS: GABAPENTIN 300 MG CAPSULE PO SCH ×2 (10:22→22:03)
[2021-06-21] MEDS: PRENATAL VITAMINS W/ FOLIC ACID TABLET (FP) PO SCH (10:22)
[2021-06-21] MEDS: NICOTINE 7 MG/24 HOURS TOPICAL PATCH TD SCH (10:23)
[2021-06-21] MEDS: MELATONIN 5 MG TABLETS PO SCH (22:02)
[2021-06-21] MEDS: THIAMINE HCL 100 MG TABLET (FP) PO SCH (22:03)
[2021-06-21] MEDS: MIRTAZAPINE 30 MG TABLET PO SCH (22:03)
[2021-06-22] MEDS ORDERED: methaDONE HCL 40 MG DISPERSABLE TABLET ONE (03:48)
[2021-06-22] MEDS ORDERED: methaDONE HCL 10 MG TABLET ONE (03:48)
[2021-06-22] MEDS: methaDONE 40 MG, methaDONE 30 MG PO SCH (06:08)
[2021-06-22] MEDS: PRENATAL VITAMINS W/ FOLIC ACID TABLET (FP) PO SCH (10:10)
[2021-06-22] MEDS: GABAPENTIN 300 MG CAPSULE PO SCH ×2 (10:10→21:34)
[2021-06-22] MEDS: NICOTINE 7 MG/24 HOURS TOPICAL PATCH TD SCH (10:10)
[2021-06-22] MEDS: MIRTAZAPINE 30 MG TABLET PO SCH (21:34)
[2021-06-22] MEDS: MELATONIN 5 MG TABLETS PO SCH (21:34)
[2021-06-22] MEDS: THIAMINE HCL 100 MG TABLET (FP) PO SCH (21:34)
[2021-06-23] MEDS ORDERED: methaDONE HCL 40 MG DISPERSABLE TABLET ONE (04:14)
[2021-06-23] MEDS ORDERED: methaDONE HCL 10 MG TABLET ONE (04:14)
[2021-06-23] MEDS: methaDONE 40 MG, methaDONE 30 MG PO SCH (06:38)
[2021-06-23] MEDS: NICOTINE 7 MG/24 HOURS TOPICAL PATCH TD SCH (10:47)
[2021-06-23] MEDS: PRENATAL VITAMINS W/ FOLIC ACID TABLET (FP) PO SCH (10:47)
[2021-06-23] MEDS: GABAPENTIN 300 MG CAPSULE PO SCH ×2 (10:47→21:28)
[2021-06-23] MEDS: THIAMINE HCL 100 MG TABLET (FP) PO SCH (21:27)
[2021-06-23] MEDS: MELATONIN 5 MG TABLETS PO SCH (21:27)
[2021-06-23] MEDS: MIRTAZAPINE 30 MG TABLET PO SCH (21:28)
[2021-06-24] MEDS ORDERED: methaDONE HCL 10 MG TABLET ONE (04:12)
[2021-06-24] MEDS ORDERED: methaDONE HCL 40 MG DISPERSABLE TABLET ONE (04:12)
[2021-06-24] MEDS: methaDONE 40 MG, methaDONE 30 MG PO SCH (06:37)
[2021-06-24] MEDS: GABAPENTIN 300 MG CAPSULE PO SCH ×2 (10:28→21:44)
[2021-06-24] MEDS: NICOTINE 7 MG/24 HOURS TOPICAL PATCH TD SCH (10:28)
[2021-06-24] MEDS: PRENATAL VITAMINS W/ FOLIC ACID TABLET (FP) PO SCH (10:28)
[2021-06-24] MEDS: MELATONIN 5 MG TABLETS PO SCH (21:43)
[2021-06-24] MEDS: THIAMINE HCL 100 MG TABLET (FP) PO SCH (21:44)
[2021-06-24] MEDS: MIRTAZAPINE 30 MG TABLET PO SCH (21:44)
[2021-06-25] MEDS ORDERED: methaDONE HCL 10 MG TABLET ONE (03:46)
[2021-06-25] MEDS ORDERED: methaDONE HCL 40 MG DISPERSABLE TABLET ONE (03:47)
[2021-06-25] MEDS: methaDONE 40 MG, methaDONE 30 MG PO SCH (06:19)
[2021-06-25] MEDS: NICOTINE 7 MG/24 HOURS TOPICAL PATCH TD SCH (10:38)
[2021-06-25] MEDS: GABAPENTIN 300 MG CAPSULE PO SCH ×2 (10:38→21:44)
[2021-06-25] MEDS: PRENATAL VITAMINS W/ FOLIC ACID TABLET (FP) PO SCH (10:38)
[2021-06-25] MEDS: MIRTAZAPINE 30 MG TABLET PO SCH (21:44)
[2021-06-25] MEDS: MELATONIN 5 MG TABLETS PO SCH (21:45)
[2021-06-25] MEDS: THIAMINE HCL 100 MG TABLET (FP) PO SCH (21:45)
[2021-06-26] MEDS ORDERED: methaDONE HCL 40 MG DISPERSABLE TABLET ONE (03:21)
[2021-06-26] MEDS ORDERED: methaDONE HCL 10 MG TABLET ONE (03:21)
[2021-06-26] MEDS: methaDONE 40 MG, methaDONE 30 MG PO SCH (05:59)
[2021-06-26] MEDS: PRENATAL VITAMINS W/ FOLIC ACID TABLET (FP) PO SCH (10:27)
[2021-06-26] MEDS: NICOTINE 7 MG/24 HOURS TOPICAL PATCH TD SCH (10:27)
[2021-06-26] MEDS: GABAPENTIN 300 MG CAPSULE PO SCH ×2 (10:27→21:23)
[2021-06-26] MEDS: MELATONIN 5 MG TABLETS PO SCH (21:23)
[2021-06-26] MEDS: MIRTAZAPINE 30 MG TABLET PO SCH (21:23)
[2021-06-26] MEDS: THIAMINE HCL 100 MG TABLET (FP) PO SCH (21:24)
[2021-06-27] MEDS ORDERED: methaDONE HCL 10 MG TABLET ONE (05:39)
[2021-06-27] MEDS ORDERED: methaDONE HCL 40 MG DISPERSABLE TABLET ONE (05:39)
[2021-06-27] MEDS: methaDONE 40 MG, methaDONE 30 MG PO SCH (06:20)
[2021-06-27] MEDS: GABAPENTIN 300 MG CAPSULE PO SCH ×2 (11:04→21:29)
[2021-06-27] MEDS: PRENATAL VITAMINS W/ FOLIC ACID TABLET (FP) PO SCH (11:04)
[2021-06-27] MEDS: NICOTINE 7 MG/24 HOURS TOPICAL PATCH TD SCH (11:05)
[2021-06-27] MEDS: MELATONIN 5 MG TABLETS PO SCH (21:29)
[2021-06-27] MEDS: THIAMINE HCL 100 MG TABLET (FP) PO SCH (21:29)
[2021-06-27] MEDS: MIRTAZAPINE 30 MG TABLET PO SCH (21:29)
[2021-06-27] MEDS: IBUPROFEN 400 MG TABLET (FP) PO PRN (21:31)
[2021-06-28] MEDS: IBUPROFEN 400 MG TABLET (FP) PO PRN ×3 (03:45→20:44)
[2021-06-28] MEDS ORDERED: methaDONE HCL 10 MG TABLET ONE (06:27)
[2021-06-28] MEDS: methaDONE 40 MG, methaDONE 30 MG PO SCH (06:27)
[2021-06-28] MEDS ORDERED: methaDONE HCL 40 MG DISPERSABLE TABLET ONE (06:27)
[2021-06-28] MEDS: NICOTINE 7 MG/24 HOURS TOPICAL PATCH TD SCH (10:53)
[2021-06-28] MEDS: PRENATAL VITAMINS W/ FOLIC ACID TABLET (FP) PO SCH (10:53)
[2021-06-28] MEDS: GABAPENTIN 300 MG CAPSULE PO SCH ×2 (10:53→21:42)
[2021-06-28] MEDS ORDERED: AMOXICILLIN 500 MG CAPSULE (FP) PO ONE (11:07)
[2021-06-28] MEDS: AMOXICILLIN 500 MG CAPSULE (FP) PO SCH ×2 (13:19→21:43)
[2021-06-28] MEDS: THIAMINE HCL 100 MG TABLET (FP) PO SCH (21:42)
[2021-06-28] MEDS: MIRTAZAPINE 30 MG TABLET PO SCH (21:42)
[2021-06-28] MEDS: MELATONIN 5 MG TABLETS PO SCH (21:43)
[2021-06-29] MEDS ORDERED: methaDONE HCL 40 MG DISPERSABLE TABLET ONE (04:16)
[2021-06-29] MEDS ORDERED: methaDONE HCL 10 MG TABLET ONE (04:16)
[2021-06-29] MEDS: AMOXICILLIN 500 MG CAPSULE (FP) PO SCH ×3 (06:35→21:28)
[2021-06-29] MEDS: cloNIDine HCL 0.1 MG TABLET PO PRN (06:35)
[2021-06-29] MEDS: methaDONE 40 MG, methaDONE 30 MG PO SCH (06:35)
[2021-06-29] MEDS: GABAPENTIN 300 MG CAPSULE PO SCH ×2 (10:41→21:28)
[2021-06-29] MEDS: PRENATAL VITAMINS W/ FOLIC ACID TABLET (FP) PO SCH (10:41)
[2021-06-29] MEDS: NICOTINE 7 MG/24 HOURS TOPICAL PATCH TD SCH (10:42)
[2021-06-29] MEDS ORDERED: LIDOCAINE VISCOUS 2% ORAL/TOP 15 ML UNIT-DOSE CUP MM PRN (11:03)
[2021-06-29] MEDS: IBUPROFEN 400 MG TABLET (FP) PO PRN ×2 (11:25→20:15)
[2021-06-29] MEDS: MIRTAZAPINE 30 MG TABLET PO SCH (21:28)
[2021-06-29] MEDS: MELATONIN 5 MG TABLETS PO SCH (21:28)
[2021-06-29] MEDS: THIAMINE HCL 100 MG TABLET (FP) PO SCH (21:28)
[2021-06-30] MEDS ORDERED: methaDONE HCL 10 MG TABLET ONE (03:18)
[2021-06-30] MEDS ORDERED: methaDONE HCL 40 MG DISPERSABLE TABLET ONE (03:18)
[2021-06-30] MEDS: IBUPROFEN 400 MG TABLET (FP) PO PRN ×2 (03:28→14:04)
[2021-06-30] MEDS: AMOXICILLIN 500 MG CAPSULE (FP) PO SCH ×3 (06:24→21:28)
[2021-06-30] MEDS: methaDONE 40 MG, methaDONE 30 MG PO SCH (06:24)
[2021-06-30] MEDS: GABAPENTIN 300 MG CAPSULE PO SCH ×2 (10:18→21:28)
[2021-06-30] MEDS: PRENATAL VITAMINS W/ FOLIC ACID TABLET (FP) PO SCH (10:18)
[2021-06-30] MEDS: NICOTINE 7 MG/24 HOURS TOPICAL PATCH TD SCH (10:19)
[2021-06-30] MEDS: BENZOCAINE 20 % GEL TUBE MM PRN (12:28)
[2021-06-30] MEDS: cloNIDine HCL 0.1 MG TABLET PO PRN ×2 (14:06→21:28)
[2021-06-30] MEDS: THIAMINE HCL 100 MG TABLET (FP) PO SCH (21:28)
[2021-06-30] MEDS: MIRTAZAPINE 30 MG TABLET PO SCH (21:28)
[2021-06-30] MEDS: MELATONIN 5 MG TABLETS PO SCH (21:28)
[2021-07-01] MEDS: IBUPROFEN 400 MG TABLET (FP) PO PRN ×2 (01:23→17:35)
[2021-07-01] MEDS ORDERED: methaDONE HCL 40 MG DISPERSABLE TABLET ONE (03:35)
[2021-07-01] MEDS ORDERED: methaDONE HCL 10 MG TABLET ONE (03:35)
[2021-07-01] MEDS: NICOTINE 10 MG CARTRIDGE (INHALER) IH PRN (06:36)
[2021-07-01] MEDS: AMOXICILLIN 500 MG CAPSULE (FP) PO SCH ×3 (06:37→21:20)
[2021-07-01] MEDS: methaDONE 40 MG, methaDONE 30 MG PO SCH (06:37)
[2021-07-01] MEDS: PRENATAL VITAMINS W/ FOLIC ACID TABLET (FP) PO SCH (10:29)
[2021-07-01] MEDS: GABAPENTIN 300 MG CAPSULE PO SCH ×2 (10:29→21:20)
[2021-07-01] MEDS: cloNIDine HCL 0.1 MG TABLET PO PRN (10:29)
[2021-07-01] MEDS: NICOTINE 7 MG/24 HOURS TOPICAL PATCH TD SCH (10:30)
[2021-07-01] MEDS: BENZOCAINE 20 % GEL TUBE MM PRN (13:38)
[2021-07-01] MEDS: MELATONIN 5 MG TABLETS PO SCH (21:20)
[2021-07-01] MEDS: THIAMINE HCL 100 MG TABLET (FP) PO SCH (21:20)
[2021-07-01] MEDS: MIRTAZAPINE 30 MG TABLET PO SCH (21:20)
[2021-07-02] MEDS ORDERED: methaDONE HCL 10 MG TABLET ONE (03:56)
[2021-07-02] MEDS ORDERED: methaDONE HCL 40 MG DISPERSABLE TABLET ONE (03:56)
[2021-07-02] MEDS: AMOXICILLIN 500 MG CAPSULE (FP) PO SCH ×3 (06:42→21:49)
[2021-07-02] MEDS: methaDONE 40 MG, methaDONE 30 MG PO SCH (06:42)
[2021-07-02] MEDS: IBUPROFEN 400 MG TABLET (FP) PO PRN (06:43)
[2021-07-02] MEDS: BENZOCAINE 20 % GEL TUBE MM PRN (06:46)
[2021-07-02] MEDS: COLLOIDAL OATMEAL 1 BAR EACH TP PRN (07:30)
[2021-07-02] MEDS: GABAPENTIN 300 MG CAPSULE PO SCH ×2 (10:40→21:49)
[2021-07-02] MEDS: PRENATAL VITAMINS W/ FOLIC ACID TABLET (FP) PO SCH (10:40)
[2021-07-02] MEDS: NICOTINE 7 MG/24 HOURS TOPICAL PATCH TD SCH (10:41)
[2021-07-02] MEDS: cloNIDine HCL 0.1 MG TABLET PO PRN (14:52)
[2021-07-02] MEDS: THIAMINE HCL 100 MG TABLET (FP) PO SCH (21:49)
[2021-07-02] MEDS: MELATONIN 5 MG TABLETS PO SCH (21:49)
[2021-07-02] MEDS: MIRTAZAPINE 30 MG TABLET PO SCH (21:49)
[2021-07-03] MEDS ORDERED: methaDONE HCL 10 MG TABLET ONE (03:45)
[2021-07-03] MEDS ORDERED: methaDONE HCL 40 MG DISPERSABLE TABLET ONE (03:46)
[2021-07-03] MEDS: AMOXICILLIN 500 MG CAPSULE (FP) PO SCH ×3 (06:37→21:20)
[2021-07-03] MEDS: methaDONE 40 MG, methaDONE 30 MG PO SCH (06:37)
[2021-07-03] MEDS: IBUPROFEN 400 MG TABLET (FP) PO PRN (06:38)
[2021-07-03] MEDS: GABAPENTIN 300 MG CAPSULE PO SCH ×2 (10:24→21:20)
[2021-07-03] MEDS: PRENATAL VITAMINS W/ FOLIC ACID TABLET (FP) PO SCH (10:25)
[2021-07-03] MEDS: NICOTINE 7 MG/24 HOURS TOPICAL PATCH TD SCH (10:25)
[2021-07-03] MEDS: cloNIDine HCL 0.1 MG TABLET PO PRN (15:38)
[2021-07-03] MEDS: MELATONIN 5 MG TABLETS PO SCH (21:20)
[2021-07-03] MEDS: NICOTINE 10 MG CARTRIDGE (INHALER) IH PRN (21:20)
[2021-07-03] MEDS: MIRTAZAPINE 30 MG TABLET PO SCH (21:20)
[2021-07-03] MEDS: THIAMINE HCL 100 MG TABLET (FP) PO SCH (21:20)
[2021-07-04] MEDS ORDERED: methaDONE HCL 40 MG DISPERSABLE TABLET ONE (03:17)
[2021-07-04] MEDS ORDERED: methaDONE HCL 10 MG TABLET ONE (03:17)
[2021-07-04] MEDS: AMOXICILLIN 500 MG CAPSULE (FP) PO SCH ×3 (06:34→22:14)
[2021-07-04] MEDS: methaDONE 40 MG, methaDONE 30 MG PO SCH (06:34)
[2021-07-04] MEDS: PRENATAL VITAMINS W/ FOLIC ACID TABLET (FP) PO SCH (10:37)
[2021-07-04] MEDS: GABAPENTIN 300 MG CAPSULE PO SCH ×2 (10:37→22:15)
[2021-07-04] MEDS: NICOTINE 7 MG/24 HOURS TOPICAL PATCH TD SCH (10:37)
[2021-07-04] MEDS: MELATONIN 5 MG TABLETS PO SCH (22:14)
[2021-07-04] MEDS: THIAMINE HCL 100 MG TABLET (FP) PO SCH (22:15)
[2021-07-04] MEDS: MIRTAZAPINE 30 MG TABLET PO SCH (22:15)
[2021-07-04] MEDS: cloNIDine HCL 0.1 MG TABLET PO PRN (22:16)
[2021-07-05] MEDS ORDERED: methaDONE HCL 10 MG TABLET ONE (05:49)
[2021-07-05] MEDS ORDERED: methaDONE HCL 40 MG DISPERSABLE TABLET ONE (05:49)
[2021-07-05] MEDS: methaDONE 40 MG, methaDONE 30 MG PO SCH (07:05)
[2021-07-05] MEDS: AMOXICILLIN 500 MG CAPSULE (FP) PO SCH ×3 (07:06→21:41)
[2021-07-05] MEDS: NICOTINE 7 MG/24 HOURS TOPICAL PATCH TD SCH (10:31)
[2021-07-05] MEDS: PRENATAL VITAMINS W/ FOLIC ACID TABLET (FP) PO SCH (10:31)
[2021-07-05] MEDS: GABAPENTIN 300 MG CAPSULE PO SCH ×2 (10:31→21:41)
[2021-07-05] MEDS: MELATONIN 5 MG TABLETS PO SCH (21:41)
[2021-07-05] MEDS: THIAMINE HCL 100 MG TABLET (FP) PO SCH (21:41)
[2021-07-05] MEDS: MIRTAZAPINE 30 MG TABLET PO SCH (21:41)
[2021-07-06] MEDS ORDERED: methaDONE HCL 40 MG DISPERSABLE TABLET ONE (04:27)
[2021-07-06] MEDS ORDERED: methaDONE HCL 10 MG TABLET ONE (04:27)
[2021-07-06] MEDS: methaDONE 40 MG, methaDONE 30 MG PO SCH (07:29)
[2021-07-06] MEDS: AMOXICILLIN 500 MG CAPSULE (FP) PO SCH ×3 (07:30→21:43)
[2021-07-06 08:13] LABS: SARS-CoV-2 NAA NOT DETECTED
[2021-07-06] MEDS: PRENATAL VITAMINS W/ FOLIC ACID TABLET (FP) PO SCH (10:29)
[2021-07-06] MEDS: GABAPENTIN 300 MG CAPSULE PO SCH ×2 (10:29→21:43)
[2021-07-06] MEDS: NICOTINE 7 MG/24 HOURS TOPICAL PATCH TD SCH (10:30)
[2021-07-06] MEDS: MIRTAZAPINE 30 MG TABLET PO SCH (21:43)
[2021-07-06] MEDS: MELATONIN 5 MG TABLETS PO SCH (21:43)
[2021-07-06] MEDS: THIAMINE HCL 100 MG TABLET (FP) PO SCH (21:43)
[2021-07-06] MEDS: NICOTINE 10 MG CARTRIDGE (INHALER) IH PRN (21:46)
[2021-07-07] MEDS ORDERED: methaDONE HCL 40 MG DISPERSABLE TABLET ONE (03:55)
[2021-07-07] MEDS ORDERED: methaDONE HCL 10 MG TABLET ONE (03:55)
[2021-07-07] MEDS: methaDONE 40 MG, methaDONE 30 MG PO SCH (07:24)
[2021-07-07] MEDS: AMOXICILLIN 500 MG CAPSULE (FP) PO SCH ×3 (07:25→21:40)
[2021-07-07] MEDS: NICOTINE 7 MG/24 HOURS TOPICAL PATCH TD SCH (10:39)
[2021-07-07] MEDS: PRENATAL VITAMINS W/ FOLIC ACID TABLET (FP) PO SCH (10:39)
[2021-07-07] MEDS: NICOTINE 10 MG CARTRIDGE (INHALER) IH PRN (10:39)
[2021-07-07] MEDS: GABAPENTIN 300 MG CAPSULE PO SCH ×2 (10:39→21:40)
[2021-07-07] MEDS: MELATONIN 5 MG TABLETS PO SCH (21:40)
[2021-07-07] MEDS: THIAMINE HCL 100 MG TABLET (FP) PO SCH (21:40)
[2021-07-07] MEDS: MIRTAZAPINE 30 MG TABLET PO SCH (21:40)
[2021-07-08] MEDS ORDERED: methaDONE HCL 10 MG TABLET ONE (04:20)
[2021-07-08] MEDS ORDERED: methaDONE HCL 40 MG DISPERSABLE TABLET ONE (04:20)
[2021-07-08] MEDS: methaDONE 40 MG, methaDONE 30 MG PO SCH (06:59)
[2021-07-08 07:20] VITALS: BP 151/91; PULSE 90; TEMP 97.5
[2021-07-08] MEDS: PRENATAL VITAMINS W/ FOLIC ACID TABLET (FP) PO SCH (09:23)
[2021-07-08] MEDS: NICOTINE 7 MG/24 HOURS TOPICAL PATCH TD SCH (09:23)
[2021-07-08] MEDS: GABAPENTIN 300 MG CAPSULE PO SCH (09:23)
== END 2021-07-08 09:40 | disposition home or self-care (01) | DRG 772 ==
LOC: YASAS 13:00 → Y5N 13:01
PROVIDERS: ADMIT Allergy & Immunology; ATTEND Allergy & Immunology
PROC: HZ42ZZZ Group Counseling for Substance Abuse Treatment, Cognitive-Behavioral (ICD-10-PCS; principal; 2021-06-13)
DX: F14.20 Cocaine dependence, uncomplicated (principal); F13.20 Sedative, hypnotic or anxiolytic dependence, uncomplicated; F11.20 Opioid dependence, uncomplicated; F17.210 Nicotine dependence, cigarettes, uncomplicated; M19.90 Unspecified osteoarthritis, unspecified site; K04.7 Periapical abscess without sinus; Z20.822 Contact with and (suspected) exposure to COVID-19; Z91.010 Allergy to peanuts
CPT/HCPCS: 87811; C9803-CS; J0735; U0003; U0005

== ENCOUNTER 2022-06-06 23:25 | Inpatient (IN) | payer OTHER ==
[2022-06-06 23:45] VITALS: BMI 25.0
[2022-06-06] MEDS ORDERED: SODIUM CHLORIDE 0.9% 500 ML INFUS.BAG IV ONE (23:47)
[2022-06-06] MEDS ORDERED: ACETAMINOPHEN 1000 MG/100 ML BAG IVPB ONE (23:47)
[2022-06-06] MEDS ORDERED: ONDANSETRON 4 MG/2 ML VIAL IVPUSH ONE (23:47)
[2022-06-06] MEDS ORDERED: ACETAMINOPHEN INJECTION 100 ML IVPB ONE (23:53)
[2022-06-06] MEDS ORDERED: ONDANSETRON 4 MG/2 ML VIAL ONE (23:53)
[2022-06-07 00:49] LABS: BASO % 0.2 % (0-2.0); HEMATOCRIT 42.8 % (32.4-45.2); HEMOGLOBIN 14.8 GM/dL (10.7-15.3); MCHC 34.6 g/dl (32.0-36.0); MEAN CELL VOLUME 83.9 fl (80-96); MEAN PLT VOLUME 9.2 fl (7.5-11.1); MONO % 6.4 % (3.8-10.2); NEUT % 77.4 % (42.8-82.8); PLATELET COUNT 252 10^3/uL (134-434); RDW 13.4 % (11.6-15.6); WHITE BLOOD COUNT 7.7 K/mm3 (4.0-10.0)
[2022-06-07 00:54] LABS: POTASSIUM 3.1 mmol/L (3.5-5.1)
[2022-06-07 00:55] LABS: INR 1.08 (0.83-1.09); PROTHROMBIN TIME (PATIENT) 12.5 SEC (9.7-13.0)
[2022-06-07 00:57] LABS: ALBUMIN 4.3 g/dl (3.4-5.0); BLOOD UREA NITROGEN 9.8 mg/dL (7-18); CALCIUM 9.4 mg/dL (8.5-10.1)
[2022-06-07 00:58] LABS: ACTIVATED PTT 29.3 SECONDS (25.2-36.5)
[2022-06-07 01:02] LABS: TOT PROT 8.7 g/dl (6.4-8.2)
[2022-06-07 01:20] LABS: LACTIC ACID 3.4 mmol/L (0.4-2.0)
[2022-06-07] MEDS ORDERED: PIPERACILLIN/TAZOB 4.5 GM 4.5 GM in DEXTROSE 5%-WATER 100 ML IVPB ONE (02:08)
[2022-06-07] MEDS ORDERED: PIPERACILLIN/TAZOB 4.5 GM 4.5 GM/100 ML BAG IVPB ONE (02:14)
[2022-06-07 02:45] LABS: EPI CELLS 20 /uL (0-25.1); HYALINE CASTS 0 /uL (0-3.1); PH,URINE 6.5 (5.0-8.0); URINE APPEARANCE CLEAR; URINE BACTERIA 21 /uL (0-1359); URINE BILIRUBIN NEGATIVE (NEGATIVE); URINE COLOR YELLOW; URINE GLUCOSE (UA) NEGATIVE (NEGATIVE); URINE KETONE NEGATIVE (NEGATIVE); URINE LEUK ESTERASE NEGATIVE (NEGATIVE); URINE NITRITE NEGATIVE (NEGATIVE); URINE PROTEIN NEGATIVE (NEGATIVE); URINE RBC 132 /uL (0-23.9); URINE UROBILINOGEN 0.2 mg/dL (0.2-1.0); URINE WBC 9 /uL (0-25.8)
[2022-06-07 02:46] LABS: MAGNESIUM 1.6 mg/dL (1.8-2.4)
[2022-06-07] MEDS: KCL 10 MEQ IVPB 10 MEQ/100 ML INFUS.BAG IVPB SCH ×3 (04:45→11:42)
[2022-06-07] MEDS ORDERED: MAGNESIUM 2GM/50ML STERILE WATER IVPB IVPB ONE (05:15)
[2022-06-07] MEDS ORDERED: ACETAMINOPHEN 1000 MG/100 ML BAG IVPB PRN (05:21)
[2022-06-07] MEDS ORDERED: MAGNESIUM SULFATE IN WATER 2 GM/50 ML IVPB IVPB ONE (05:28)
[2022-06-07] MEDS ORDERED: KCL 10 MEQ IVPB 20 MEQ/200 ML INFUS.BAG IVPB ONE (05:29)
[2022-06-07] MEDS ORDERED: methaDONE HCL 10 MG TABLET PO ONE (06:00)
[2022-06-07] MEDS: LACTATED RINGERS SOLUTION 1,000 ML IV SCH (06:39)
[2022-06-07] MEDS ORDERED: methaDONE 40 MG, methaDONE 30 MG PO ONE (07:00)
[2022-06-07] MEDS ORDERED: PIPERACILLIN/TAZOB 3.375 GM 3.375 GM in DEXTROSE 5%-WATER - 50 ML IVPB SCH (10:00)
[2022-06-07] MEDS ORDERED: methaDONE HCL 40 MG DISPERSABLE TABLET PO SCH (10:15)
[2022-06-07] MEDS: GABAPENTIN 300 MG CAPSULE PO SCH ×2 (11:44→21:05)
[2022-06-07] MEDS: ALPRAZolam 1 MG TABLET PO SCH ×4 (11:44→21:08)
[2022-06-07] MEDS: PIPERACILLIN/TAZOB 3.375 GM 3.375 GM in DEXTROSE 5%-WATER - 50 ML IVPB SCH ×3 (11:44→18:21)
[2022-06-07] MEDS: methaDONE 40 MG, methaDONE 30 MG PO SCH (11:45)
[2022-06-07 15:27] LABS: BASO % 0.4 % (0-2.0); EOS % 0.1 % (0-4.5); HEMATOCRIT 35.4 % (32.4-45.2); HEMOGLOBIN 12.4 GM/dL (10.7-15.3); LYMPH % 12.6 % (8-40); MCH 29.3 pg (25.7-33.7); MCHC 35.1 g/dl (32.0-36.0); MEAN CELL VOLUME 83.4 fl (80-96); MEAN PLT VOLUME 9.7 fl (7.5-11.1); MONO % 11.1 % (3.8-10.2); NEUT % 75.8 % (42.8-82.8); PLATELET COUNT 170 10^3/uL (134-434); RBC 4.24 M/mm3 (3.60-5.2); RDW 13.2 % (11.6-15.6)
[2022-06-07 15:30] LABS: INR 1.38 (0.83-1.09); PROTHROMBIN TIME (PATIENT) 15.9 SEC (9.7-13.0)
[2022-06-07 15:32] LABS: ACTIVATED PTT 29.1 SECONDS (25.2-36.5)
[2022-06-07 15:40] LABS: POTASSIUM 3.7 mmol/L (3.5-5.1)
[2022-06-07 15:43] LABS: CALCIUM 8.6 mg/dL (8.5-10.1); MAGNESIUM 2.1 mg/dL (1.8-2.4)
[2022-06-07 15:45] LABS: BLOOD UREA NITROGEN 6.9 mg/dL (7-18)
[2022-06-07 15:47] LABS: CREATININE 0.6 mg/dL (0.55-1.3)
[2022-06-07 15:48] LABS: PHOSPHOROUS 2.2 mg/dL (2.5-4.9); TOT PROT 6.7 g/dl (6.4-8.2)
[2022-06-07 15:50] LABS: BILIRUBIN,TOTAL 1.6 mg/dL (0.2-1)
[2022-06-07 15:52] LABS: ALBUMIN 3.3 g/dl (3.4-5.0)
[2022-06-07] MEDS: AZTREONAM 1 GM in DEXTROSE 5%-WATER - 50 ML IVPB SCH (20:11)
[2022-06-07] MEDS ORDERED: ALPRAZolam 1 MG TABLET PO PRN (21:24)
[2022-06-07] MEDS ORDERED: MIRTAZAPINE 15 MG TABLET (FP) PO SCH (22:00)
[2022-06-08] MEDS: LACTATED RINGERS SOLUTION 1,000 ML IV SCH ×2 (02:25→07:05)
[2022-06-08] MEDS: AZTREONAM 1 GM in DEXTROSE 5%-WATER - 50 ML IVPB SCH ×3 (05:01→21:23)
[2022-06-08] MEDS: methaDONE 40 MG, methaDONE 30 MG PO SCH (05:14)
[2022-06-08] MEDS ORDERED: BUPIVACAINE HCL/PF 0.5% (5MG/ML) 10 ML VIAL ONE (08:06)
[2022-06-08] MEDS: GABAPENTIN 300 MG CAPSULE PO SCH ×3 (09:19→21:23)
[2022-06-08 09:23] LABS: BASO % 0.2 % (0-2.0); EOS % 0.1 % (0-4.5); HEMATOCRIT 33.7 % (32.4-45.2); HEMOGLOBIN 11.7 GM/dL (10.7-15.3); LYMPH % 17.9 % (8-40); MCH 29.5 pg (25.7-33.7); MCHC 34.8 g/dl (32.0-36.0); MEAN CELL VOLUME 84.7 fl (80-96); MEAN PLT VOLUME 9.6 fl (7.5-11.1); MONO % 13.4 % (3.8-10.2); NEUT % 68.4 % (42.8-82.8); PLATELET COUNT 162 10^3/uL (134-434); RBC 3.98 M/mm3 (3.60-5.2); RDW 13.6 % (11.6-15.6); WHITE BLOOD COUNT 7.6 K/mm3 (4.0-10.0)
[2022-06-08 09:30] LABS: INR 1.33 (0.83-1.09); PROTHROMBIN TIME (PATIENT) 15.4 SEC (9.7-13.0)
[2022-06-08 09:44] LABS: POTASSIUM 3.3 mmol/L (3.5-5.1)
[2022-06-08 09:54] LABS: CREATININE 0.7 mg/dL (0.55-1.3)
[2022-06-08 09:55] LABS: BILIRUBIN,TOTAL 1.2 mg/dL (0.2-1); TOT PROT 6.1 g/dl (6.4-8.2)
[2022-06-08 09:57] LABS: BLOOD UREA NITROGEN 11.2 mg/dL (7-18); CALCIUM 8.4 mg/dL (8.5-10.1); MAGNESIUM 2.1 mg/dL (1.8-2.4)
[2022-06-08] MEDS ORDERED: ACETAMINOPHEN INJECTION 100 ML IVPB ONE (10:39)
[2022-06-08] MEDS ORDERED: DEXMEDETOMIDINE HCL 200 MCG/2 ML IVPB ONE (10:40)
[2022-06-08] MEDS ORDERED: MIDAZOLAM HCL 2 MG/2 ML SINGLE DOSE VIAL ONE (10:42)
[2022-06-08] MEDS ORDERED: ROCURONIUM BROMIDE 50 MG/5 ML SYRINGE ONE (10:56)
[2022-06-08] MEDS ORDERED: NEOSTIGMINE METHYLSULFATE 0.5 MG/1 ML - 10 ML MDV ONE (11:14)
[2022-06-08] MEDS ORDERED: BUPIVACAINE HCL/PF 0.5% (5 MG/ML) 30 ML VIAL IJ ONE ×3 (11:15→12:58)
[2022-06-08] MEDS ORDERED: PROPOFOL 20 ML ONE (11:17)
[2022-06-08] MEDS: SODIUM CHLORIDE 1,000 ML IV SCH (16:00)
[2022-06-08] MEDS: oxyCODONE HCL 5 MG TABLET PO PRN (16:22)
[2022-06-08] MEDS: KETOROLAC TROMETHAMINE 30 MG/1 ML VIAL IVPUSH SCH (21:23)
[2022-06-08] MEDS: ALPRAZolam 1 MG TABLET PO PRN (21:23)
[2022-06-08] MEDS: MIRTAZAPINE 15 MG TABLET (FP) PO SCH (21:23)
[2022-06-09] MEDS: KETOROLAC TROMETHAMINE 30 MG/1 ML VIAL IVPUSH SCH ×3 (02:12→13:58)
[2022-06-09] MEDS: AZTREONAM 1 GM in DEXTROSE 5%-WATER - 50 ML IVPB SCH ×2 (04:29→12:46)
[2022-06-09] MEDS: methaDONE 40 MG, methaDONE 30 MG PO SCH (06:15)
[2022-06-09 08:41] LABS: BASO % 0.3 % (0-2.0); EOS % 0.1 % (0-4.5); LYMPH % 15.6 % (8-40); MCH 29.2 pg (25.7-33.7); MCHC 34.5 g/dl (32.0-36.0); MEAN CELL VOLUME 84.7 fl (80-96); MEAN PLT VOLUME 9.2 fl (7.5-11.1); MONO % 12.7 % (3.8-10.2); NEUT % 71.3 % (42.8-82.8); PLATELET COUNT 141 10^3/uL (134-434); RBC 3.42 M/mm3 (3.60-5.2); RDW 13.3 % (11.6-15.6)
[2022-06-09 08:48] LABS: POTASSIUM 3.2 mmol/L (3.5-5.1)
[2022-06-09 08:51] LABS: ALBUMIN 2.4 g/dl (3.4-5.0); BLOOD UREA NITROGEN 9.6 mg/dL (7-18); CALCIUM 7.6 mg/dL (8.5-10.1); MAGNESIUM 1.8 mg/dL (1.8-2.4)
[2022-06-09 08:54] LABS: CREATININE 0.6 mg/dL (0.55-1.3)
[2022-06-09 08:56] LABS: BILIRUBIN,TOTAL 1.2 mg/dL (0.2-1); TOT PROT 5.4 g/dl (6.4-8.2)
[2022-06-09] MEDS: GABAPENTIN 300 MG CAPSULE PO SCH ×2 (09:29→22:37)
[2022-06-09] MEDS ORDERED: CARIPRAZINE HCL PO SCH (10:00)
[2022-06-09] MEDS: PATIENT'S OWN MEDICATION (NON-FORMULARY) (Cariprazine Hcl [Vraylar] 1.5 MG Capsule) PO SCH ×2 (11:14→11:15)
[2022-06-09] MEDS: SODIUM CHLORIDE 1,000 ML IV SCH (13:59)
[2022-06-09] MEDS: MIRTAZAPINE 15 MG TABLET (FP) PO SCH (22:37)
[2022-06-09] MEDS: ALPRAZolam 1 MG TABLET PO PRN (22:37)
[2022-06-10] MEDS: oxyCODONE HCL 5 MG TABLET PO PRN (02:02)
[2022-06-10] MEDS: SODIUM CHLORIDE 1,000 ML IV SCH (03:12)
[2022-06-10] MEDS: methaDONE 40 MG, methaDONE 30 MG PO SCH (05:16)
[2022-06-10 09:53] LABS: BASO % 0.3 % (0-2.0); EOS % 0.8 % (0-4.5); HEMATOCRIT 33.1 % (32.4-45.2); HEMOGLOBIN 11.5 GM/dL (10.7-15.3); LYMPH % 14.1 % (8-40); MCH 29.4 pg (25.7-33.7); MCHC 34.8 g/dl (32.0-36.0); MEAN CELL VOLUME 84.5 fl (80-96); MONO % 8.3 % (3.8-10.2); NEUT % 76.5 % (42.8-82.8); PLATELET COUNT 204 10^3/uL (134-434); RBC 3.92 M/mm3 (3.60-5.2); RDW 13.5 % (11.6-15.6); WHITE BLOOD COUNT 9.9 K/mm3 (4.0-10.0)
[2022-06-10 10:00] LABS: CALCIUM 8.6 mg/dL (8.5-10.1)
[2022-06-10 10:01] LABS: ALBUMIN 2.9 g/dl (3.4-5.0); BLOOD UREA NITROGEN 4.7 mg/dL (7-18); MAGNESIUM 1.7 mg/dL (1.8-2.4)
[2022-06-10 10:04] LABS: CREATININE 0.7 mg/dL (0.55-1.3)
[2022-06-10] MEDS: GABAPENTIN 300 MG CAPSULE PO SCH ×2 (10:04→21:17)
[2022-06-10 10:05] LABS: BILIRUBIN,TOTAL 1.3 mg/dL (0.2-1)
[2022-06-10 10:06] LABS: TOT PROT 6.5 g/dl (6.4-8.2)
[2022-06-10] MEDS ORDERED: MAGNESIUM OXIDE 400 MG TABLET (FP) PO ONE (10:43)
[2022-06-10] MEDS ORDERED: POTASSIUM CHLORIDE TABS 20 MEQ TABLET.ER (FP) PO ONE (10:45)
[2022-06-10] MEDS ORDERED: FUROSEMIDE 40 MG/4 ML INJECTABLE VIAL IVPUSH ONE (11:03)
[2022-06-10] MEDS ORDERED: ALBUTEROL SO4 2.5/IPRATROPIUM 0.5 INH SOL 3 ML VIAL.NEB. NEB SCH (12:00)
[2022-06-10 12:01] LABS: URINE BARBITURATES NEGATIVE (NEGATIVE)
[2022-06-10 12:02] LABS: PHENCYCLIDINE,URINE NEGATIVE (NEGATIVE); URINE AMPHETAMINES NEGATIVE (NEGATIVE)
[2022-06-10] MEDS ORDERED: ALBUTEROL SO4 2.5/IPRATROPIUM 0.5 INH SOL 3 ML VIAL.NEB. NEB ONE (12:15)
[2022-06-10] MEDS ORDERED: oxyCODONE HCL 5 MG TABLET PO PRN (12:34)
[2022-06-10 12:42] LABS: COCAINE, UR POSITIVE (NEGATIVE); METHADONE, UR POSITIVE (NEGATIVE); OPIATES, URI POSITIVE (NEGATIVE); URINE BENZODIAZEPINES POSITIVE (NEGATIVE)
[2022-06-10] MEDS ORDERED: ACETAMINOPHEN 1000 MG/100 ML BAG IVPB PRN (15:56)
[2022-06-10 16:10] LABS: ARTERIAL BLD GAS O2 SATURATION 74.7 % (95-98); ARTERIAL BLOOD GAS BASE EXCESS 4.6 mmol/L (-2-2); ARTERIAL BLOOD GAS PO2 40.3 mmHg (80-100)
[2022-06-10 16:14] LABS: ALLENS TEST POSITIVE
[2022-06-10] MEDS: ALBUTEROL SO4 2.5/IPRATROPIUM 0.5 INH SOL 3 ML VIAL.NEB. NEB SCH ×2 (16:22→20:08)
[2022-06-10] MEDS: PIPERACILLIN/TAZOB 3.375 GM 3.375 GM in DEXTROSE 5%-WATER - 50 ML IVPB SCH ×2 (18:45→20:59)
[2022-06-10] MEDS: ENOXAPARIN NA (PORCINE) 40 MG/0.4 ML DISP.SYRIN SQ SCH (20:55)
[2022-06-10 21:12] LABS: ARTERIAL BLD GAS O2 SATURATION 95.1 % (95-98); ARTERIAL BLOOD GAS BASE EXCESS 3.8 mmol/L (-2-2); ARTERIAL BLOOD GAS PO2 68.6 mmHg (80-100); ARTERIAL BLOOD GAS pH 7.495 (7.350-7.450)
[2022-06-10 21:14] LABS: ALLENS TEST POSITIVE
[2022-06-10] MEDS: MIRTAZAPINE 15 MG TABLET (FP) PO SCH (21:17)
[2022-06-10] MEDS: ALPRAZolam 1 MG TABLET PO PRN (22:28)
[2022-06-10] MEDS: POTASSIUM CHLORIDE TABS 20 MEQ TABLET.ER (FP) PO SCH (22:28)
[2022-06-11] MEDS: PIPERACILLIN/TAZOB 3.375 GM 3.375 GM in DEXTROSE 5%-WATER - 50 ML IVPB SCH ×4 (02:43→21:20)
[2022-06-11] MEDS: methaDONE 40 MG, methaDONE 30 MG PO SCH (05:41)
[2022-06-11] MEDS: ALBUTEROL SO4 2.5/IPRATROPIUM 0.5 INH SOL 3 ML VIAL.NEB. NEB SCH ×4 (08:46→19:27)
[2022-06-11] MEDS: ALPRAZolam 1 MG TABLET PO PRN (10:42)
[2022-06-11] MEDS: GABAPENTIN 300 MG CAPSULE PO SCH ×2 (10:42→21:20)
[2022-06-11] MEDS: POTASSIUM CHLORIDE TABS 20 MEQ TABLET.ER (FP) PO SCH ×2 (10:42→21:20)
[2022-06-11] MEDS: ENOXAPARIN NA (PORCINE) 40 MG/0.4 ML DISP.SYRIN SQ SCH (10:42)
[2022-06-11 13:28] LABS: BASO % 0.3 % (0-2.0); EOS % 1.9 % (0-4.5); HEMATOCRIT 30.1 % (32.4-45.2); HEMOGLOBIN 10.2 GM/dL (10.7-15.3); LYMPH % 11.3 % (8-40); MCH 28.6 pg (25.7-33.7); MCHC 33.8 g/dl (32.0-36.0); MEAN CELL VOLUME 84.6 fl (80-96); MEAN PLT VOLUME 8.6 fl (7.5-11.1); MONO % 8.6 % (3.8-10.2); NEUT % 77.9 % (42.8-82.8); PLATELET COUNT 205 10^3/uL (134-434); RBC 3.56 M/mm3 (3.60-5.2); RDW 13.3 % (11.6-15.6); WHITE BLOOD COUNT 8.8 K/mm3 (4.0-10.0)
[2022-06-11 13:46] LABS: POTASSIUM 3.2 mmol/L (3.5-5.1)
[2022-06-11 13:47] LABS: ALBUMIN 2.5 g/dl (3.4-5.0)
[2022-06-11 13:48] LABS: CALCIUM 8.6 mg/dL (8.5-10.1); MAGNESIUM 1.9 mg/dL (1.8-2.4)
[2022-06-11 13:49] LABS: BLOOD UREA NITROGEN 4.7 mg/dL (7-18)
[2022-06-11 13:51] LABS: CREATININE 0.6 mg/dL (0.55-1.3)
[2022-06-11 13:54] LABS: BILIRUBIN,TOTAL 0.9 mg/dL (0.2-1)
[2022-06-11] MEDS ORDERED: POTASSIUM CHLORIDE TABS 20 MEQ TABLET.ER (FP) PO ONE (17:28)
[2022-06-11] MEDS: MIRTAZAPINE 15 MG TABLET (FP) PO SCH (21:20)
[2022-06-11] MEDS: ACETAMINOPHEN 1000 MG/100 ML BAG IVPB PRN (22:06)
[2022-06-12] MEDS: PIPERACILLIN/TAZOB 3.375 GM 3.375 GM in DEXTROSE 5%-WATER - 50 ML IVPB SCH ×4 (02:36→21:14)
[2022-06-12] MEDS: methaDONE 40 MG, methaDONE 30 MG PO SCH (06:16)
[2022-06-12] MEDS: ALBUTEROL SO4 2.5/IPRATROPIUM 0.5 INH SOL 3 ML VIAL.NEB. NEB SCH ×4 (08:36→19:48)
[2022-06-12 09:41] LABS: BASO % 0.2 % (0-2.0); EOS % 2.1 % (0-4.5); HEMATOCRIT 30.2 % (32.4-45.2); HEMOGLOBIN 10.2 GM/dL (10.7-15.3); LYMPH % 15.4 % (8-40); MCH 28.5 pg (25.7-33.7); MCHC 33.9 g/dl (32.0-36.0); MEAN CELL VOLUME 83.9 fl (80-96); MEAN PLT VOLUME 8.3 fl (7.5-11.1); MONO % 11.3 % (3.8-10.2); PLATELET COUNT 253 10^3/uL (134-434); RDW 13.5 % (11.6-15.6); WHITE BLOOD COUNT 10.3 K/mm3 (4.0-10.0)
[2022-06-12] MEDS: ENOXAPARIN NA (PORCINE) 40 MG/0.4 ML DISP.SYRIN SQ SCH (10:01)
[2022-06-12] MEDS: POTASSIUM CHLORIDE TABS 20 MEQ TABLET.ER (FP) PO SCH ×2 (10:02→21:13)
[2022-06-12] MEDS: GABAPENTIN 300 MG CAPSULE PO SCH ×2 (10:02→21:13)
[2022-06-12] MEDS: ALPRAZolam 1 MG TABLET PO PRN (10:02)
[2022-06-12 11:17] LABS: POTASSIUM 4.1 mmol/L (3.5-5.1)
[2022-06-12 11:23] LABS: ALBUMIN 2.6 g/dl (3.4-5.0); BLOOD UREA NITROGEN 5.4 mg/dL (7-18)
[2022-06-12 11:26] LABS: CREATININE 0.6 mg/dL (0.55-1.3)
[2022-06-12 11:28] LABS: BILIRUBIN,TOTAL 1.6 mg/dL (0.2-1); TOT PROT 6.4 g/dl (6.4-8.2)
[2022-06-12] MEDS ORDERED: ALPRAZolam 1 MG TABLET PO PRN (15:25)
[2022-06-12] MEDS: MIRTAZAPINE 15 MG TABLET (FP) PO SCH (21:13)
[2022-06-12] MEDS: PANTOPRAZOLE 40 MG TABLET PO SCH (21:14)
[2022-06-12] MEDS: ACETAMINOPHEN 1000 MG/100 ML BAG IVPB PRN (21:15)
[2022-06-13] MEDS: PIPERACILLIN/TAZOB 3.375 GM 3.375 GM in DEXTROSE 5%-WATER - 50 ML IVPB SCH ×2 (02:03→10:16)
[2022-06-13] MEDS: methaDONE 40 MG, methaDONE 30 MG PO SCH (06:21)
[2022-06-13] MEDS: ALBUTEROL SO4 2.5/IPRATROPIUM 0.5 INH SOL 3 ML VIAL.NEB. NEB SCH ×4 (08:32→19:43)
[2022-06-13 08:58] LABS: BASO % 0.3 % (0-2.0); EOS % 3.1 % (0-4.5); HEMATOCRIT 27.7 % (32.4-45.2); HEMOGLOBIN 9.4 GM/dL (10.7-15.3); LYMPH % 14.4 % (8-40); MCH 28.4 pg (25.7-33.7); MCHC 33.9 g/dl (32.0-36.0); MEAN CELL VOLUME 83.6 fl (80-96); MEAN PLT VOLUME 8.1 fl (7.5-11.1); MONO % 11.1 % (3.8-10.2); NEUT % 71.1 % (42.8-82.8); PLATELET COUNT 316 10^3/uL (134-434); RBC 3.31 M/mm3 (3.60-5.2); RDW 13.6 % (11.6-15.6); WHITE BLOOD COUNT 9.8 K/mm3 (4.0-10.0)
[2022-06-13 09:14] LABS: POTASSIUM 4.6 mmol/L (3.5-5.1)
[2022-06-13 09:17] LABS: CALCIUM 8.9 mg/dL (8.5-10.1)
[2022-06-13 09:18] LABS: ALBUMIN 2.4 g/dl (3.4-5.0); BLOOD UREA NITROGEN 7.2 mg/dL (7-18); MAGNESIUM 2.1 mg/dL (1.8-2.4)
[2022-06-13 09:21] LABS: CREATININE 0.7 mg/dL (0.55-1.3)
[2022-06-13 09:23] LABS: BILIRUBIN,TOTAL 0.8 mg/dL (0.2-1); TOT PROT 6.3 g/dl (6.4-8.2)
[2022-06-13] MEDS: PANTOPRAZOLE 40 MG TABLET PO SCH (10:17)
[2022-06-13] MEDS: POTASSIUM CHLORIDE TABS 20 MEQ TABLET.ER (FP) PO SCH ×2 (10:17→21:07)
[2022-06-13] MEDS: ENOXAPARIN NA (PORCINE) 40 MG/0.4 ML DISP.SYRIN SQ SCH (10:17)
[2022-06-13] MEDS: GABAPENTIN 300 MG CAPSULE PO SCH ×2 (10:17→21:06)
[2022-06-13] MEDS: ALPRAZolam 1 MG TABLET PO PRN ×2 (10:27→21:07)
[2022-06-13 15:55] VITALS: RESP 20
[2022-06-13] MEDS: MIRTAZAPINE 15 MG TABLET (FP) PO SCH (21:06)
[2022-06-14] MEDS: methaDONE 40 MG, methaDONE 30 MG PO SCH (06:07)
[2022-06-14] MEDS: ALBUTEROL SO4 2.5/IPRATROPIUM 0.5 INH SOL 3 ML VIAL.NEB. NEB SCH ×4 (07:58→20:00)
[2022-06-14 08:17] LABS: BASO % 0.3 % (0-2.0); EOS % 4.4 % (0-4.5); HEMATOCRIT 27.9 % (32.4-45.2); HEMOGLOBIN 9.5 GM/dL (10.7-15.3); LYMPH % 14.8 % (8-40); MCH 28.9 pg (25.7-33.7); MCHC 34.2 g/dl (32.0-36.0); MEAN CELL VOLUME 84.6 fl (80-96); MEAN PLT VOLUME 8.3 fl (7.5-11.1); MONO % 9.3 % (3.8-10.2); NEUT % 71.2 % (42.8-82.8); PLATELET COUNT 354 10^3/uL (134-434); RBC 3.29 M/mm3 (3.60-5.2); RDW 13.3 % (11.6-15.6); WHITE BLOOD COUNT 8.5 K/mm3 (4.0-10.0)
[2022-06-14 08:32] LABS: POTASSIUM 4.3 mmol/L (3.5-5.1)
[2022-06-14 08:36] LABS: ALBUMIN 2.5 g/dl (3.4-5.0); BLOOD UREA NITROGEN 8.1 mg/dL (7-18); CALCIUM 8.9 mg/dL (8.5-10.1)
[2022-06-14 08:39] LABS: CREATININE 0.7 mg/dL (0.55-1.3)
[2022-06-14 08:40] LABS: BILIRUBIN,TOTAL 0.6 mg/dL (0.2-1); TOT PROT 6.4 g/dl (6.4-8.2)
[2022-06-14 08:51] LABS: MAGNESIUM 2.3 mg/dL (1.8-2.4)
[2022-06-14] MEDS: PANTOPRAZOLE 40 MG TABLET PO SCH (10:19)
[2022-06-14] MEDS: GABAPENTIN 300 MG CAPSULE PO SCH ×2 (10:20→21:54)
[2022-06-14] MEDS: ENOXAPARIN NA (PORCINE) 40 MG/0.4 ML DISP.SYRIN SQ SCH (10:21)
[2022-06-14] MEDS: POTASSIUM CHLORIDE TABS 20 MEQ TABLET.ER (FP) PO SCH ×2 (10:21→21:53)
[2022-06-14] MEDS: ALPRAZolam 1 MG TABLET PO PRN ×2 (11:11→22:04)
[2022-06-14] MEDS: MIRTAZAPINE 15 MG TABLET (FP) PO SCH (21:53)
[2022-06-15] MEDS: methaDONE 40 MG, methaDONE 30 MG PO SCH (06:31)
[2022-06-15 07:45] LABS: BASO % 0.5 % (0-2.0); EOS % 4.3 % (0-4.5); HEMATOCRIT 28.8 % (32.4-45.2); HEMOGLOBIN 9.9 GM/dL (10.7-15.3); LYMPH % 22.6 % (8-40); MCH 28.9 pg (25.7-33.7); MCHC 34.3 g/dl (32.0-36.0); MEAN CELL VOLUME 84.2 fl (80-96); MEAN PLT VOLUME 8.1 fl (7.5-11.1); NEUT % 62.6 % (42.8-82.8); PLATELET COUNT 448 10^3/uL (134-434); RBC 3.42 M/mm3 (3.60-5.2); RDW 13.6 % (11.6-15.6); WHITE BLOOD COUNT 7.6 K/mm3 (4.0-10.0)
[2022-06-15] MEDS: ALBUTEROL SO4 2.5/IPRATROPIUM 0.5 INH SOL 3 ML VIAL.NEB. NEB SCH ×2 (07:45→11:24)
[2022-06-15 07:54] LABS: POTASSIUM 4.6 mmol/L (3.5-5.1)
[2022-06-15 07:59] LABS: MAGNESIUM 2.3 mg/dL (1.8-2.4)
[2022-06-15 08:01] LABS: ALBUMIN 2.5 g/dl (3.4-5.0)
[2022-06-15 08:03] LABS: BILIRUBIN,TOTAL 0.4 mg/dL (0.2-1); CREATININE 0.7 mg/dL (0.55-1.3)
[2022-06-15 08:06] LABS: TOT PROT 6.6 g/dl (6.4-8.2)
[2022-06-15] MEDS: GABAPENTIN 300 MG CAPSULE PO SCH ×2 (09:45→22:04)
[2022-06-15] MEDS: POTASSIUM CHLORIDE TABS 20 MEQ TABLET.ER (FP) PO SCH ×2 (09:45→22:03)
[2022-06-15] MEDS: PANTOPRAZOLE 40 MG TABLET PO SCH (09:45)
[2022-06-15] MEDS: ENOXAPARIN NA (PORCINE) 40 MG/0.4 ML DISP.SYRIN SQ SCH (09:45)
[2022-06-15] MEDS: ALPRAZolam 1 MG TABLET PO PRN ×2 (09:45→22:05)
[2022-06-15] MEDS: MIRTAZAPINE 15 MG TABLET (FP) PO SCH (22:04)
[2022-06-16] MEDS ORDERED: methaDONE HCL 10 MG TABLET PO ONE (07:29)
[2022-06-16 08:05] VITALS: BP 154/77; TEMP 98
[2022-06-16 08:12] VITALS: PULSE 86
[2022-06-16] MEDS: PANTOPRAZOLE 40 MG TABLET PO SCH (11:19)
[2022-06-16] MEDS: POTASSIUM CHLORIDE TABS 20 MEQ TABLET.ER (FP) PO SCH (11:19)
[2022-06-16] MEDS: ENOXAPARIN NA (PORCINE) 40 MG/0.4 ML DISP.SYRIN SQ SCH (11:20)
[2022-06-16] MEDS: GABAPENTIN 300 MG CAPSULE PO SCH (11:20)
[2022-06-16] MEDS: ALPRAZolam 1 MG TABLET PO PRN (11:31)
== END 2022-06-16 15:26 | disposition home health service (06) | DRG 263 ==
LOC: JER 23:25 → JERBED 06-07 02:07 → J5S 06-07 07:55 → J8W 06-08 16:09
PROVIDERS: ADMIT Student in an Organized Health Care Education/Training Program; ATTEND Nurse Practitioner Acute Care
PROC: BF522Z0 Other Imaging of Gallbladder using Fluorescing Agent, Intraoperative (ICD-10-PCS; 2022-06-08)
PROC: 0FT44ZZ Resection of Gallbladder, Percutaneous Endoscopic Approach (ICD-10-PCS; principal; 2022-06-08 11:00)
DX: K80.00 Calculus of gallbladder with acute cholecystitis without obstruction (principal); K82.A1 Gangrene of gallbladder in cholecystitis; J96.01 Acute respiratory failure with hypoxia; J18.9 Pneumonia, unspecified organism; E83.42 Hypomagnesemia; F11.20 Opioid dependence, uncomplicated; Z99.81 Dependence on supplemental oxygen; M06.8A Other specified rheumatoid arthritis, other specified site; E87.6 Hypokalemia; M54.59 Other low back pain; F43.10 Post-traumatic stress disorder, unspecified; G56.00 Carpal tunnel syndrome, unspecified upper limb; F14.10 Cocaine abuse, uncomplicated; F41.8 Other specified anxiety disorders; I10 Essential (primary) hypertension; R01.1 Cardiac murmur, unspecified; J95.89 Other postprocedural complications and disorders of respiratory system, not elsewhere classified; J98.11 Atelectasis; F31.32 Bipolar disorder, current episode depressed, moderate; J44.9 Chronic obstructive pulmonary disease, unspecified
CPT/HCPCS: 0241U-QW; 36415; 36600; 71045-TC-FY; 71250-TC; 74177-TC; 76000-TC-FY; 76705-TC; 80053; 80061; 80307; 81003; 82803; 82962; 83036; 83605; 83690; 83735; 84100; 85025; 85610; 85730; 86850; 86900; 86901; 87040; 87086; 88304-TC; 93005; 93010; 93306-TC; 94010; 94640; 94760; 94761; 97116-GP; 97161-GP; 99285-25; C9803-CS; Q9967; U0003; U0005

== ENCOUNTER 2024-07-07 05:33 | Inpatient (IN) | payer OTHER ==
[2024-07-07] MEDS ORDERED: ACETAMINOPHEN INJECTION 100 ML ONE (06:14)
[2024-07-07] MEDS: SODIUM CHLORIDE 1,000 ML IV STA (06:21)
[2024-07-07] MEDS: ACETAMINOPHEN 1000 MG/100 ML BAG IVPB ONE (06:21)
[2024-07-07] MEDS ORDERED: FAMOTIDINE 20 MG/50 ML IVPB 20 MG/50 ML MG IVPB ONE (06:31)
[2024-07-07] MEDS: FAMOTIDINE 20 MG/50 ML IVPB 20 MG/50 ML MG IVPB ONE (06:35)
[2024-07-07] MEDS ORDERED: TRIMETHOBENZAMIDE HCL 200MG/2ML INJ IM ONE (06:37)
[2024-07-07] MEDS: TRIMETHOBENZAMIDE HCL 200MG/2ML INJ IM ONE (06:44)
[2024-07-07 07:02] LABS: CHLORIDE 93 mmol/L (98-107); SODIUM 136 mmol/L (136-145)
[2024-07-07 07:05] LABS: ALBUMIN 4.2 g/dl (3.4-5.0); BLOOD UREA NITROGEN 27.8 mg/dL (7-18); CO2 31 mmol/L (21-32); GLUCOSE,RANDOM 168 mg/dL (74-106)
[2024-07-07 07:07] LABS: ABSOLUTE IMMATURE GRANULOCYTES 0.03 x10^3/uL (0.0-0.031); BASOPHILS # 0.01 x10^3/uL (0.01-0.08); CALCIUM 10.3 mg/dL (8.5-10.1); EOSINOPHIL % 0.5 % (0.7-5.8); EOSINOPHILS # 0.04 x10^3/uL (0.04-0.36); HEMATOCRIT 46.6 % (34.1-44.9); HEMOGLOBIN 15.3 g/dL (11.2-15.7); MCHC 32.8 g/dl (32.2-35.5); MEAN CELL VOLUME 85.7 fl (79.4-94.8); MEAN PLT VOLUME 10.8 fl (9.4-12.3); MONOCYTE # 0.83 x10^3/uL (0.24-0.86); MONOCYTE % 9.8 % (4.7-12.5); PLATELET COUNT 222 x10^3/uL (182-369); RDW 12.9 % (12.4-16.4)
[2024-07-07 07:08] LABS: CREATININE 1.2 mg/dL (0.55-1.3); SGOT/AST 155 U/L (15-37); SGPT/ALT 110 U/L (13-61)
[2024-07-07 07:09] LABS: BILIRUBIN,TOTAL 2.3 mg/dL (0.2-1); TOT PROT 7.8 g/dl (6.4-8.2)
[2024-07-07 07:10] LABS: ALK PHOS 111 U/L (45-117)
[2024-07-07 07:15] LABS: ANION GAP 13 mmol/L (4-13); POTASSIUM 2.9 mmol/L (3.5-5.1)
[2024-07-07 07:33] LABS: MAGNESIUM 2.1 mg/dL (1.8-2.4)
[2024-07-07] MEDS: KCL 20 MEQ PREMIX BAG 20 MEQ/100 ML INFUS.BAG IVPB ONE (07:54)
[2024-07-07] MEDS ORDERED: POTASSIUM CHLORIDE TABS 20 MEQ TABLET.ER (FP) PO ONE (07:55)
[2024-07-07] MEDS ORDERED: KCL 10 MEQ IVPB 10 MEQ/100 ML INFUS.BAG IVPB ONE (07:55)
[2024-07-07] MEDS: KCL 10 MEQ IVPB 10 MEQ/100 ML INFUS.BAG IVPB SCH ×2 (08:00→11:05)
[2024-07-07] MEDS: POTASSIUM CHLORIDE TABS 20 MEQ TABLET.ER (FP) PO ONE (08:00)
[2024-07-07] MEDS ORDERED: ACETAMINOPHEN 1000 MG/100 ML BAG IVPB PRN (08:41)
[2024-07-07] MEDS: LABETALOL HCL 20 MG/4 ML VIAL IVPUSH ONE ×2 (09:11→10:30)
[2024-07-07 09:30] LABS: EPI CELLS >36 /uL (0-25.1); HYALINE CASTS 5 /uL (0-3.1); URINE APPEARANCE CLOUDY; URINE BACTERIA 334 /uL (0-1359); URINE BILIRUBIN 1+ (NEGATIVE); URINE COLOR DK YELLOW; URINE GLUCOSE (UA) NEGATIVE (NEGATIVE); URINE KETONE 2+ (NEGATIVE); URINE LEUK ESTERASE NEGATIVE (NEGATIVE); URINE NITRITE NEGATIVE (NEGATIVE); URINE PROTEIN 2+ (NEGATIVE); URINE WBC 55 /uL (0-25.8)
[2024-07-07 09:42] LABS: URINE RBC 44 /uL (0-23.9)
[2024-07-07 10:06] LABS: URINE AMPHETAMINES NEGATIVE (NEGATIVE); URINE BARBITURATES NEGATIVE (NEGATIVE)
[2024-07-07 10:07] LABS: PHENCYCLIDINE,URINE NEGATIVE (NEGATIVE); URINE BENZODIAZEPINES NEGATIVE (NEGATIVE)
[2024-07-07 10:08] LABS: COCAINE, UR POSITIVE (NEGATIVE); METHADONE, UR POSITIVE (NEGATIVE); OPIATES, URI POSITIVE (NEGATIVE)
[2024-07-07] MEDS ORDERED: methaDONE HCL 10 MG TABLET PO PRN (10:48)
[2024-07-07] MEDS: SODIUM CHLORIDE 1,000 ML IV SCH (11:02)
[2024-07-07] MEDS: POTASSIUM CHLORIDE ORAL LIQUID 20 MEQ/15 ML PO ONE (11:02)
[2024-07-07] MEDS: TRIMETHOBENZAMIDE HCL 200MG/2ML INJ IM PRN (11:05)
[2024-07-07] MEDS: HEPARIN NA (PORCINE) 5,000 UNITS/ML 1ML VIAL SQ SCH (11:05)
[2024-07-07] MEDS: methaDONE HCL 10 MG TABLET PO ONE (11:19)
[2024-07-07] MEDS ORDERED: ALBUTEROL SO4 HFA INHALER IH PRN (12:35)
[2024-07-07] MEDS ORDERED: PATIENT'S OWN MEDICATION (NON-FORMULARY) (Cariprazine Hcl [Vraylar] 1.5 MG Capsule) PO SCH (12:45)
[2024-07-07] MEDS: methaDONE HCL 10 MG TABLET (FOR DETOX USE ONLY) PO ONE (13:11)
[2024-07-07 15:34] LABS: CALCIUM 9.1 mg/dL (8.5-10.1)
[2024-07-07 15:35] LABS: ALBUMIN 3.4 g/dl (3.4-5.0); BLOOD UREA NITROGEN 15.6 mg/dL (7-18)
[2024-07-07 15:38] LABS: CREATININE 0.6 mg/dL (0.55-1.3)
[2024-07-07 15:39] LABS: BILIRUBIN,TOTAL 1.5 mg/dL (0.2-1); TOT PROT 6.3 g/dl (6.4-8.2)
[2024-07-07] MEDS: cloNIDine HCL 0.1 MG TABLET PO PRN (18:19)
[2024-07-07] MEDS: GABAPENTIN 300 MG CAPSULE PO SCH (21:02)
[2024-07-07] MEDS: BUDESONIDE/FORMETEROL FUMARATE 80/4.5 mcg INHALER IH SCH (21:03)
[2024-07-07] MEDS: CARVEDILOL 6.25 MG TABLET (FP) PO SCH (21:24)
[2024-07-08 08:11] LABS: ABSOLUTE IMMATURE GRANULOCYTES 0.02 x10^3/uL (0.0-0.031); BASOPHILS # 0.02 x10^3/uL (0.01-0.08); EOSINOPHIL % 0.5 % (0.7-5.8); EOSINOPHILS # 0.03 x10^3/uL (0.04-0.36); HEMATOCRIT 44.7 % (34.1-44.9); HEMOGLOBIN 14.5 g/dL (11.2-15.7); MCHC 32.4 g/dl (32.2-35.5); MEAN PLT VOLUME 10.6 fl (9.4-12.3); MONOCYTE # 0.68 x10^3/uL (0.24-0.86); MONOCYTE % 11.3 % (4.7-12.5); PLATELET COUNT 211 x10^3/uL (182-369); RDW 12.7 % (12.4-16.4)
[2024-07-08 08:14] LABS: POTASSIUM 3.5 mmol/L (3.5-5.1)
[2024-07-08 08:19] LABS: CALCIUM 9.7 mg/dL (8.5-10.1)
[2024-07-08 08:20] LABS: ALBUMIN 3.7 g/dl (3.4-5.0)
[2024-07-08 08:23] LABS: CREATININE 0.7 mg/dL (0.55-1.3); PHOSPHOROUS 2.5 mg/dL (2.5-4.9)
[2024-07-08 08:24] LABS: BILIRUBIN,TOTAL 2.4 mg/dL (0.2-1); TOT PROT 7.1 g/dl (6.4-8.2)
[2024-07-08] MEDS: TIOTROPIUM BROMIDE 2.5 MCG (SPIRIVA) RESPIMAT INHALER IH SCH (10:15)
[2024-07-08 10:16] LABS: BILIRUBIN,DIRECT 0.5 mg/dL (0.0-0.2)
[2024-07-08] MEDS: methaDONE HCL 40 MG DISPERSABLE TABLET PO ONE (13:10)
[2024-07-08] MEDS: SODIUM CHLORIDE 1,000 ML IV SCH (13:11)
[2024-07-08] MEDS: methaDONE HCL 40 MG DISPERSABLE TABLET PO SCH (13:21)
[2024-07-08] MEDS: POTASSIUM CHLORIDE ORAL LIQUID 20 MEQ/15 ML PO ONE (16:44)
[2024-07-09] MEDS: ACETAMINOPHEN 325 MG TABLET (FP) PO PRN (01:03)
[2024-07-09] MEDS ORDERED: methaDONE HCL 40 MG DISPERSABLE TABLET PO SCH (06:00)
[2024-07-09 08:36] LABS: HEMATOCRIT 41.4 % (34.1-44.9); HEMOGLOBIN 13.3 g/dL (11.2-15.7); MCHC 32.1 g/dl (32.2-35.5); MEAN CELL VOLUME 86.8 fl (79.4-94.8); MEAN PLT VOLUME 10.7 fl (9.4-12.3); PLATELET COUNT 177 x10^3/uL (182-369); RDW 12.6 % (12.4-16.4)
[2024-07-09 08:56] LABS: POTASSIUM 4.6 mmol/L (3.5-5.1)
[2024-07-09 08:58] LABS: ALBUMIN 3.2 g/dl (3.4-5.0); CALCIUM 9.4 mg/dL (8.5-10.1)
[2024-07-09 08:59] LABS: BLOOD UREA NITROGEN 13.3 mg/dL (7-18); MAGNESIUM 1.9 mg/dL (1.8-2.4)
[2024-07-09 09:02] LABS: CREATININE 0.7 mg/dL (0.55-1.3)
[2024-07-09 09:03] LABS: BILIRUBIN,TOTAL 1.9 mg/dL (0.2-1); TOT PROT 6.1 g/dl (6.4-8.2)
[2024-07-09] MEDS ORDERED: methaDONE HCL 10 MG TABLET PO ONE (10:00)
[2024-07-09] MEDS: ENOXAPARIN NA (PORCINE) 40 MG/0.4 ML DISP.SYRIN SQ SCH (11:09)
[2024-07-09] MEDS: GABAPENTIN 300 MG CAPSULE PO SCH (13:24)
[2024-07-09] MEDS: LIDOCAINE 5% TOPICAL PATCH TP SCH (16:39)
[2024-07-09] MEDS: ACETAMINOPHEN 325 MG TABLET (FP) PO SCH (21:33)
[2024-07-09] MEDS: CARVEDILOL 6.25 MG TABLET (FP) PO SCH (21:34)
[2024-07-09] MEDS: LIDOCAINE PATCH REMOVAL MC SCH (21:34)
[2024-07-09] MEDS: IBUPROFEN 600 MG TABLET (FP) PO SCH (21:34)
[2024-07-10 08:17] LABS: HEMATOCRIT 39.5 % (34.1-44.9); HEMOGLOBIN 12.7 g/dL (11.2-15.7); MCHC 32.2 g/dl (32.2-35.5); MEAN CELL VOLUME 87.8 fl (79.4-94.8); MEAN PLT VOLUME 10.8 fl (9.4-12.3); PLATELET COUNT 170 x10^3/uL (182-369); RDW 12.7 % (12.4-16.4)
[2024-07-10 08:33] LABS: POTASSIUM 4.1 mmol/L (3.5-5.1)
[2024-07-10 08:44] LABS: ALBUMIN 3.4 g/dl (3.4-5.0); CALCIUM 9.3 mg/dL (8.5-10.1)
[2024-07-10 08:48] LABS: CREATININE 0.7 mg/dL (0.55-1.3)
[2024-07-10 08:49] LABS: BILIRUBIN,TOTAL 1.6 mg/dL (0.2-1); TOT PROT 6.2 g/dl (6.4-8.2)
[2024-07-10] MEDS: PIPERACILLIN/TAZOB 3.375 GM 3.375 GM in DEXTROSE 5%-WATER - 50 ML IVPB SCH (17:23)
[2024-07-11 08:04] LABS: ABSOLUTE IMMATURE GRANULOCYTES 0.01 x10^3/uL (0.0-0.031); BASOPHILS # 0.03 x10^3/uL (0.01-0.08); EOSINOPHIL % 5.1 % (0.7-5.8); EOSINOPHILS # 0.21 x10^3/uL (0.04-0.36); HEMATOCRIT 38.1 % (34.1-44.9); HEMOGLOBIN 12.3 g/dL (11.2-15.7); MCHC 32.3 g/dl (32.2-35.5); MEAN CELL VOLUME 86.2 fl (79.4-94.8); MEAN PLT VOLUME 10.7 fl (9.4-12.3); MONOCYTE # 0.46 x10^3/uL (0.24-0.86); MONOCYTE % 11.2 % (4.7-12.5); PLATELET COUNT 167 x10^3/uL (182-369); RDW 12.7 % (12.4-16.4)
[2024-07-11 08:12] LABS: INR 0.98 (0.83-1.09); PROTHROMBIN TIME (PATIENT) 10.8 SEC (9.7-13.0)
[2024-07-11 08:26] LABS: ALBUMIN 3.2 g/dl (3.4-5.0); CALCIUM 9.1 mg/dL (8.5-10.1)
[2024-07-11 08:27] LABS: BLOOD UREA NITROGEN 12.7 mg/dL (7-18)
[2024-07-11 08:30] LABS: CREATININE 0.7 mg/dL (0.55-1.3)
[2024-07-11 08:31] LABS: BILIRUBIN,TOTAL 0.8 mg/dL (0.2-1)
[2024-07-11] MEDS ORDERED: methaDONE HCL 10 MG TABLET PO ONE (10:00)
[2024-07-11] MEDS: GABAPENTIN 400 MG CAPSULE PO SCH (15:36)
[2024-07-11] MEDS: methaDONE HCL 10 MG TABLET PO ONE (17:56)
[2024-07-12] MEDS: methaDONE HCL 10 MG TABLET PO ONE (01:34)
[2024-07-12] MEDS: methaDONE HCL 40 MG DISPERSABLE TABLET PO SCH (07:51)
[2024-07-12 08:46] LABS: HEMATOCRIT 38.3 % (34.1-44.9); HEMOGLOBIN 12.3 g/dL (11.2-15.7); MCHC 32.1 g/dl (32.2-35.5); MEAN CELL VOLUME 86.7 fl (79.4-94.8); MEAN PLT VOLUME 11.3 fl (9.4-12.3); PLATELET COUNT 185 x10^3/uL (182-369); RDW 12.8 % (12.4-16.4)
[2024-07-12 09:17] LABS: POTASSIUM 4.2 mmol/L (3.5-5.1)
[2024-07-12 09:35] LABS: CREATININE 0.8 mg/dL (0.55-1.3)
[2024-07-12 09:39] LABS: BILIRUBIN,TOTAL 0.8 mg/dL (0.2-1)
[2024-07-12 09:41] LABS: TOT PROT 6.8 g/dl (6.4-8.2)
[2024-07-12 09:43] LABS: ALBUMIN 3.7 g/dl (3.4-5.0); BLOOD UREA NITROGEN 12.6 mg/dL (7-18); CALCIUM 9.5 mg/dL (8.5-10.1); MAGNESIUM 2.4 mg/dL (1.8-2.4)
[2024-07-12] MEDS: ENOXAPARIN NA (PORCINE) 40 MG/0.4 ML DISP.SYRIN SQ SCH (10:34)
[2024-07-12] MEDS: PIPERACILLIN/TAZOB 3.375 GM 3.375 GM in DEXTROSE 5%-WATER - 50 ML IVPB SCH (10:34)
[2024-07-12] MEDS: ACETAMINOPHEN 1000 MG/100 ML BAG IVPB PRN (10:36)
[2024-07-12 12:06] LABS: HEPATITIS B SURF AG NON-MATERN NON-REACTIVE (NONREACTIVE)
[2024-07-12 12:35] LABS: HCV DIAGNOSTIC IN-HOUSE W/RFLX NON-REACTIVE (NONREACTIVE)
[2024-07-12] MEDS ORDERED: DOCUSATE SODIUM 100 MG CAPSULE (FP) PO SCH (13:45)
[2024-07-12] MEDS ORDERED: POLYETHYLENE GLYCOL (HEALTHYLAX) 3350 17 GM PACKET PO SCH (14:00)
[2024-07-13 09:50] LABS: HEMATOCRIT 38.2 % (34.1-44.9); HEMOGLOBIN 12.3 g/dL (11.2-15.7); MCHC 32.2 g/dl (32.2-35.5); MEAN CELL VOLUME 88.4 fl (79.4-94.8); MEAN PLT VOLUME 11.5 fl (9.4-12.3); PLATELET COUNT 183 x10^3/uL (182-369); RDW 12.8 % (12.4-16.4)
[2024-07-13 10:15] LABS: POTASSIUM 4.1 mmol/L (3.5-5.1)
[2024-07-13 10:23] LABS: CALCIUM 9.9 mg/dL (8.5-10.1)
[2024-07-13 10:24] LABS: ALBUMIN 3.6 g/dl (3.4-5.0); BLOOD UREA NITROGEN 12.1 mg/dL (7-18)
[2024-07-13 10:27] LABS: CREATININE 0.8 mg/dL (0.55-1.3)
[2024-07-13 10:28] LABS: BILIRUBIN,TOTAL 0.8 mg/dL (0.2-1)
[2024-07-13 10:41] LABS: TOT PROT 6.8 g/dl (6.4-8.2)
[2024-07-13] MEDS ORDERED: DOCUSATE SODIUM 100 MG CAPSULE (FP) PO PRN (16:24)
[2024-07-13] MEDS: POLYETHYLENE GLYCOL (HEALTHYLAX) 3350 17 GM PACKET PO SCH (16:50)
[2024-07-14 10:25] LABS: ABSOLUTE IMMATURE GRANULOCYTES 0.02 x10^3/uL (0.0-0.031); BASOPHILS # 0.04 x10^3/uL (0.01-0.08); EOSINOPHIL % 5.7 % (0.7-5.8); EOSINOPHILS # 0.27 x10^3/uL (0.04-0.36); HEMATOCRIT 35.9 % (34.1-44.9); HEMOGLOBIN 11.4 g/dL (11.2-15.7); MCHC 31.8 g/dl (32.2-35.5); MEAN CELL VOLUME 88.6 fl (79.4-94.8); MEAN PLT VOLUME 11.8 fl (9.4-12.3); MONOCYTE # 0.51 x10^3/uL (0.24-0.86); MONOCYTE % 10.7 % (4.7-12.5); PLATELET COUNT 186 x10^3/uL (182-369)
[2024-07-14 10:31] LABS: INR 0.97 (0.83-1.09); PROTHROMBIN TIME (PATIENT) 10.6 SEC (9.7-13.0)
[2024-07-14 10:52] LABS: ALBUMIN 3.5 g/dl (3.4-5.0); BLOOD UREA NITROGEN 15.3 mg/dL (7-18)
[2024-07-14 10:53] LABS: CALCIUM 9.9 mg/dL (8.5-10.1)
[2024-07-14 10:59] LABS: CREATININE 0.8 mg/dL (0.55-1.3); TOT PROT 6.5 g/dl (6.4-8.2)
[2024-07-14 11:00] LABS: BILIRUBIN,TOTAL 0.8 mg/dL (0.2-1)
[2024-07-14] MEDS: ACETAMINOPHEN 1000 MG/100 ML BAG IVPB PRN (11:43)
[2024-07-14] MEDS: LIDOCAINE 5% TOPICAL PATCH TP SCH (13:59)
[2024-07-14] MEDS: LIDOCAINE PATCH REMOVAL MC SCH (21:48)
[2024-07-14] MEDS: ONDANSETRON 4 MG/2 ML VIAL IVPUSH ONE (23:47)
[2024-07-15 08:44] LABS: INR 0.95 (0.83-1.09); PROTHROMBIN TIME (PATIENT) 10.4 SEC (9.7-13.0)
[2024-07-15 08:57] LABS: POTASSIUM 4.6 mmol/L (3.5-5.1)
[2024-07-15 09:01] LABS: ALBUMIN 3.9 g/dl (3.4-5.0)
[2024-07-15 09:02] LABS: CALCIUM 9.9 mg/dL (8.5-10.1)
[2024-07-15 09:03] LABS: BLOOD UREA NITROGEN 19.4 mg/dL (7-18)
[2024-07-15 09:05] LABS: CREATININE 0.7 mg/dL (0.55-1.3)
[2024-07-15 09:06] LABS: TOT PROT 7.1 g/dl (6.4-8.2)
[2024-07-15 09:08] LABS: ABSOLUTE IMMATURE GRANULOCYTES 0.01 x10^3/uL (0.0-0.031); BASOPHILS # 0.04 x10^3/uL (0.01-0.08); EOSINOPHIL % 4.6 % (0.7-5.8); EOSINOPHILS # 0.25 x10^3/uL (0.04-0.36); HEMATOCRIT 37.9 % (34.1-44.9); HEMOGLOBIN 12.2 g/dL (11.2-15.7); MCHC 32.2 g/dl (32.2-35.5); MEAN CELL VOLUME 87.9 fl (79.4-94.8); MEAN PLT VOLUME 11.5 fl (9.4-12.3); MONOCYTE % 12.9 % (4.7-12.5); PLATELET COUNT 243 x10^3/uL (182-369); RDW 12.9 % (12.4-16.4)
[2024-07-15] MEDS: INDOMETHACIN 50 MG RECTAL SUPPOSITORY PR ONE (12:13)
[2024-07-16 03:13] VITALS: TEMP 98.1
[2024-07-16] MEDS: AMOX TR/POT CLAV 875MG/125MG TABLETS (FP) PO ONE (09:21)
[2024-07-16 10:08] LABS: HEMATOCRIT 34.8 % (34.1-44.9); HEMOGLOBIN 10.9 g/dL (11.2-15.7); MCHC 31.3 g/dl (32.2-35.5); MEAN CELL VOLUME 90.4 fl (79.4-94.8); MEAN PLT VOLUME 10.9 fl (9.4-12.3); PLATELET COUNT 214 x10^3/uL (182-369)
[2024-07-16 10:29] LABS: POTASSIUM 4.1 mmol/L (3.5-5.1)
[2024-07-16 10:42] LABS: BLOOD UREA NITROGEN 14.2 mg/dL (7-18); CALCIUM 9.8 mg/dL (8.5-10.1)
[2024-07-16 10:43] LABS: ALBUMIN 3.5 g/dl (3.4-5.0)
[2024-07-16 10:46] LABS: BILIRUBIN,DIRECT 0.3 mg/dL (0.0-0.2); CREATININE 0.8 mg/dL (0.55-1.3)
[2024-07-16 10:47] LABS: BILIRUBIN,TOTAL 1.1 mg/dL (0.2-1)
[2024-07-16 10:49] LABS: TOT PROT 6.7 g/dl (6.4-8.2)
[2024-07-16 11:44] VITALS: BP 121/65; PULSE 65; RESP 19
== END 2024-07-16 16:55 | disposition home or self-care (01) | DRG 773 ==
LOC: JER 05:33 → JERBED 09:21 → J6S 10:27
PROVIDERS: ADMIT Internal Medicine; ATTEND Internal Medicine
PROC: 0F798ZZ Dilation of Common Bile Duct, Via Natural or Artificial Opening Endoscopic (ICD-10-PCS; 2024-07-15)
PROC: 0FC98ZZ Extirpation of Matter from Common Bile Duct, Via Natural or Artificial Opening Endoscopic (ICD-10-PCS; 2024-07-15)
PROC: BF10YZZ Fluoroscopy of Bile Ducts using Other Contrast (ICD-10-PCS; 2024-07-15)
PROC: 0FC98ZZ Extirpation of Matter from Common Bile Duct, Via Natural or Artificial Opening Endoscopic (ICD-10-PCS; principal; 2024-07-15 11:00)
PROC: BF12YZZ Fluoroscopy of Gallbladder using Other Contrast (ICD-10-PCS; 2024-07-15 11:00)
DX: F11.23 Opioid dependence with withdrawal (principal); I10 Essential (primary) hypertension; E87.6 Hypokalemia; F12.90 Cannabis use, unspecified, uncomplicated; E43 Unspecified severe protein-calorie malnutrition; F14.10 Cocaine abuse, uncomplicated; I16.0 Hypertensive urgency; J44.9 Chronic obstructive pulmonary disease, unspecified; R25.1 Tremor, unspecified; F31.89 Other bipolar disorder; D86.0 Sarcoidosis of lung; G56.03 Carpal tunnel syndrome, bilateral upper limbs; M19.09 Primary osteoarthritis, other specified site; G89.29 Other chronic pain; G62.89 Other specified polyneuropathies; F41.8 Other specified anxiety disorders; F43.10 Post-traumatic stress disorder, unspecified; R79.89 Other specified abnormal findings of blood chemistry; I09.9 Rheumatic heart disease, unspecified; F17.210 Nicotine dependence, cigarettes, uncomplicated; R07.89 Other chest pain; K80.50 Calculus of bile duct without cholangitis or cholecystitis without obstruction; K83.1 Obstruction of bile duct; M48.061 Spinal stenosis, lumbar region without neurogenic claudication; M54.16 Radiculopathy, lumbar region; M06.9 Rheumatoid arthritis, unspecified; F19.10 Other psychoactive substance abuse, uncomplicated; R63.4 Abnormal weight loss; Z68.20 Body mass index [BMI] 20.0-20.9, adult; R94.31 Abnormal electrocardiogram [ECG] [EKG]
CPT/HCPCS: 36415; 70450-TC; 70551-TC; 72100-TC-FY; 72148-TC; 73502-TC-RT-FY; 74178-TC; 74181-TC; 76000-TC-FY; 76705-TC; 80053; 80076; 80307; 81003; 82105; 82248; 82378; 83010; 83690; 83735; 84100; 84484; 85025; 85027; 85610; 86301; 86704; 86708; 86803; 86850; 86900; 86901; 87340; 87517; 88104; 88305-TC; 93005; 93010; 93306-TC; 93971-TC; 97116-GP; 97162-GP; 99285-25; C1726; J0131; J1644; Q9967